=== PATIENT | male | born 1930 | race Caucasian/White ===

== ENCOUNTER 2016-11-30 10:28 | Emergency (ER) | payer OTHER ==
--- NOTE | 2016-11-30 10:52 | ER Document Report ---
ED Medical Screen (RME) - General Chief Complaint: General Weakness Stated Complaint: WEAKNESS,POSSIBLE DEHYDRATION Notes: 86 yo male c/o feeling weak, slightly confused. feels "sick". not drinking as much as usual. feels achey. no n/v/d or fever. pt has hx/o dementia, DM. Pt has chronic rash TRAVEL OUTSIDE OF THE [place] IN LAST 30 DAYS: No - Related Data Allergies/Adverse Reactions: No Known Allergies Allergy (Verified 11/30/16 10:36) Past Medical History - Social History Chew tobacco use (# tins/day): No Frequency of alcohol use: None Drug Abuse: None - Past Medical History Cardiac Medical History: Reports: Hx Hypertension - medicated Denies: Hx Heart Attack Pulmonary Medical History: Denies: Hx Asthma Neurological Medical History: Denies: Hx Cerebrovascular Accident, Hx Seizures GI Medical History: Denies: Hx Hepatitis, Hx Hiatal Hernia, Hx Ulcer Skin Medical History: Denies Hx Cellulitis Infectious Medical History: Denies: Hx Hepatitis Past Surgical History: Reports: Hx Carotid Endarterectomy. Denies: Hx Open Heart Surgery, Hx Pacemaker - Immunizations Hx Diphtheria, Pertussis, Tetanus Vaccination: Yes Physical Exam - Vital signs Vitals: Temp Pulse Resp BP Pulse Ox 98.1 F 105 H 18 110/45 L 90 L 11/30/16 10:42 11/30/16 10:42 11/30/16 10:42 11/30/16 10:42 11/30/16 10:42 Course - Vital Signs Vital signs: Temp Pulse Resp BP Pulse Ox 98.1 F 105 H 18 110/45 L 90 L 11/30/16 10:42 11/30/16 10:42 11/30/16 10:42 11/30/16 10:42 11/30/16 10:42
[2016-11-30] MEDS ORDERED: NORMAL SALINE 1000 ML 1,000 ML IV ONE ×2 (11:42→12:27)
[2016-11-30 12:01] LABS: ABSOLUTE BASOPHILS # (AUTO) 0.1 10^3/uL (0.0-0.2); ABSOLUTE EOSINOPHILS # (AUTO) 1.5 10^3/uL (0.0-0.6); ABSOLUTE LYMPHOCYTES (AUTO) 1.9 10^3/uL (0.5-4.7); ABSOLUTE NEUT (AUTO) 5.9 10^3/uL (1.7-8.2); BASOPHILS % (AUTO) 0.8 % (0-2); HEMATOCRIT 36.1 % (37.9-51.0); HEMOGLOBIN 11.8 g/dL (13.5-17.0); HGB HCT DIFFERENCE -0.7; LYMPHOCYTES % (AUTO) 17.9 % (13-45); MEAN CORPUSCULAR HEMOGLOBIN 27.6 pg (27.0-33.4); MEAN CORPUSCULAR HGB CONC 32.5 g/dL (32.0-36.0); MEAN CORPUSCULAR VOLUME 85 fl (80-97); RED BLOOD COUNT 4.26 10^6/uL (4.35-5.55); RED CELL DISTRIBUTION WIDTH 14.8 % (11.5-14.0); SEGMENTED NEUTROPHILS % (AUTO) 57.3 % (42-78); WHITE BLOOD COUNT 10.4 10^3/uL (4.0-10.5)
[2016-11-30 12:23] LABS: ALANINE AMINOTRANSFERASE 40 U/L (21-72); ALBUMIN 3.8 g/dL (3.5-5.0); ALKALINE PHOSPHATASE 89 U/L (38-126); ANION GAP 14 (5-19); ASPARTATE AMINO TRANSFERASE 25 U/L (17-59); BILIRUBIN,TOTAL 0.4 mg/dL (0.2-1.3); BLOOD UREA NITROGEN 33 mg/dL (7-20); CARBON DIOXIDE 34 mmol/L (22-30); CHLORIDE 96 mmol/L (98-107); CREATINE KINASE 68 U/L (55-170); GLUCOSE 70 mg/dL (75-110); POTASSIUM 4.3 mmol/L (3.6-5.0); SODIUM 144.2 mmol/L (137-145); TOTAL PROTEIN 7.5 g/dL (6.3-8.2)
[2016-11-30 12:32] LABS: CREATINE KINASE MB 0.54 ng/mL (<4.55); TROPONIN I 0.019 ng/mL
[2016-11-30 12:34] LABS: APPEARANCE,URINE CLEAR; BILIRUBIN,URINE NEGATIVE (NEGATIVE); GLUCOSE, URINE NEGATIVE (NEGATIVE); KETONES,URINE NEGATIVE (NEGATIVE); LEUKOCYTE ESTERASE,URINE NEGATIVE (NEGATIVE); NITRITE,URINE NEGATIVE (NEGATIVE); PROTEIN,URINE NEGATIVE (NEGATIVE); UROBILINOGEN,URINE NEGATIVE mg/dL (<2.0)
--- NOTE | 2016-11-30 13:14 | ER Document Report ---
ED General - General Chief Complaint: General Weakness Stated Complaint: WEAKNESS,POSSIBLE DEHYDRATION Mode of Arrival: Ambulatory Information source: Patient, Relative Notes: 86-year-old male presents from home with complaints of dehydration. Patient notes weakness but denies any specific complaints. Son who is a caregiver states that he was much worse 2 days ago gave him lots of Gatorade yesterday and he has perked up since he wanted him to be evaluated for dehydration. Patient denies any other concerns TRAVEL OUTSIDE OF THE [place] IN LAST 30 DAYS: No - HPI Onset: Other - 3 days Onset/Duration: Persistent, Better Quality of pain: No pain Severity: Mild Pain Level: Denies Associated symptoms: Weakness Exacerbated by: Denies Relieved by: Denies Similar symptoms previously: Yes Recently seen / treated by doctor: No - Related Data Allergies/Adverse Reactions: No Known Allergies Allergy (Verified 11/30/16 10:36) Past Medical History - Social History Smoking Status: Never Smoker Cigarette use (# per day): No Chew tobacco use (# tins/day): No Smoking Education Provided: No Frequency of alcohol use: None Drug Abuse: None Family History: Reviewed & Not Pertinent Patient has suicidal ideation: No Patient has homicidal ideation: No - Past Medical History Cardiac Medical History: Reports: Hx Hypertension - medicated Denies: Hx Heart Attack Pulmonary Medical History: Denies: Hx Asthma Neurological Medical History: Denies: Hx Cerebrovascular Accident, Hx Seizures GI Medical History: Denies: Hx Hepatitis, Hx Hiatal Hernia, Hx Ulcer Skin Medical History: Denies Hx Cellulitis Infectious Medical History: Denies: Hx Hepatitis Past Surgical History: Reports: Hx Carotid Endarterectomy. Denies: Hx Open Heart Surgery, Hx Pacemaker - Immunizations Hx Diphtheria, Pertussis, Tetanus Vaccination: Yes Review of Systems - Review of Systems Notes: REVIEW OF SYSTEMS: CONSTITUTIONAL : Denies fever, chills, or sweats. Denies recent illness. EENT: Denies eye, ear, throat, or mouth pain or symptoms. Denies nasal or sinus congestion or discharge. Denies throat, tongue, or mouth swelling or difficulty swallowing. CARDIOVASCULAR: Denies chest pain. Denies palpitations or racing or irregular heart beat. Denies ankle edema. RESPIRATORY: Denies cough, cold, or chest congestion. Denies shortness of breath, difficulty breathing, or wheezing. GASTROINTESTINAL: Denies abdominal pain or distention. Denies nausea, vomiting , or diarrhea. Denies blood in vomitus, stools, or per rectum. Denies black, tarry stools. Denies constipation. GENITOURINARY: Denies difficulty urinating, painful urination, burning, frequency, blood in urine, or discharge. MUSCULOSKELETAL: Denies back or neck pain or stiffness. Denies joint pain or swelling. SKIN: Denies rash, lesions or sores. HEMATOLOGIC : Denies easy bruising or bleeding. LYMPHATIC: Denies swollen, enlarged glands. NEUROLOGICAL: Admits weakness PSYCHIATRIC: Denies anxiety or stress. Denies depression, suicidal ideation, or homicidal ideation. ALL OTHER SYSTEMS REVIEWED AND NEGATIVE. Dictation was performed using [employer] voice recognition software PHYSICAL EXAMINATION: GENERAL: Well-appearing, well-nourished and in no acute distress. HEAD: Atraumatic, normocephalic. EYES: Pupils equal round and reactive to light, extraocular movements intact, sclera anicteric, left eye discharge chronic ENT: Nares patent, oropharynx clear without exudates. Moist mucous membranes. NECK: Normal range of motion, supple without lymphadenopathy LUNGS: Breath sounds clear to auscultation bilaterally and equal. No wheezes rales or rhonchi. HEART: Regular rate and rhythm without murmurs ABDOMEN: Soft, nontender, nondistended abdomen. No guarding, no rebound. No masses appreciated. Musculoskeletal: Normal range of motion, no pitting or edema. No cyanosis. NEUROLOGICAL: Cranial nerves grossly intact. Normal speech, normal gait. Normal sensory, motor exams PSYCH: Normal mood, normal affect. SKIN: Warm, Dry, normal turgor, no rashes or lesions noted. Physical Exam - Vital signs Vitals: Temp Pulse Resp BP Pulse Ox 98.1 F 105 H 18 110/45 L 90 L 11/30/16 10:42 11/30/16 10:42 11/30/16 10:42 11/30/16 10:42 11/30/16 10:42 Course - Re-evaluation Re-evalutation: 11/30/16 13:12 Patient's creatinine is noted to be 2.5 otherwise the patient looks extremely well, I will hydrate him, family wishes to go home as is the patient. I spent to them my specific concerns and they state the understand and will return immediately if there are any other concerns Patient given 2 L of fluid notes significant improvement After performing a Medical Screening Examination, I estimate there is LOW risk for ACUTE CORONARY SYNDROME, RESPIRATORY FAILURE, SEPSIS OR MENINGITIS, thus I consider the discharge disposition reasonable. The patient and I have discussed the diagnosis and risks, and we agree with discharging home with close follow- up. We also discussed returning to the Emergency Department immediately if new or worsening symptoms occur. We have discussed the symptoms which are most concerning (e.g., changing or worsening pain, trouble swallowing or breathing, neck stiffness, fever) that necessitate immediate return. 11/30/16 13:14 11/30/16 13:14 - Vital Signs Vital signs: Temp Pulse Resp BP Pulse Ox 98.1 F 105 H 18 110/45 L 90 L 11/30/16 10:42 11/30/16 10:42 11/30/16 10:42 11/30/16 10:42 11/30/16 10:42 - Laboratory Result Diagrams: 11/30/16 11:25 11/30/16 11:25 Laboratory results interpreted by me: 11/30/16 11/30/16 11:25 11:25 RBC 4.26 L Hgb 11.8 L Hct 36.1 L RDW 14.8 H Eosinophils % 14.0 H Absolute Eosinophils 1.5 H Chloride 96 L Carbon Dioxide 34 H BUN 33 H Creatinine 2.50 H Est GFR ( Amer) 30 L Est GFR (Non-Af Amer) 25 L Glucose 70 L - Diagnostic Test Radiology reviewed: Image reviewed, Reports reviewed Discharge - Discharge Clinical Impression: Dehydration, Renal insufficiency Condition: Stable Disposition: HOME, SELF-CARE Additional Instructions: Dehydration Dehydration can result from vomiting or diarrhea, fever, or decreased intake of fluids. If severe, hospitalization and intravenous fluids may be required. Most cases are treated at home with fluids by mouth. For the next 24 hours, drink lots of clear fluids. In mild cases, this can be soda pop or sports drinks. For more severe dehydration, the doctor may recommend special fluids such as Pedialyte or Lytren. Try to get three liters ( 3 quarts) of fluid per day. If vomiting occurs, continue to drink the fluids frequently (every 15 to 20 minutes), but in small amounts (one or two ounces). Depending on the type of dehydration, the doctor may prescribe antinausea medicine or potassium replacements. Call the doctor or return for re-examination if you become progressively weak, vomit repeatedly, or have other new symptoms. Follow up with your physician tomorrow for further care or return to the ED IMMEDIATELY if symptoms worsen or new concerns occur
[2016-11-30 13:54] VITALS: BP 119/99
--- NOTE | 2016-11-30 15:50 | EKG REPORT ---
SEVERITY:- NORMAL ECG - SINUS RHYTHM : Confirmed by: Arlyn Castillo 30-Nov-2016 15:50:14
== END 2016-11-30 16:45 | disposition home or self-care (01) ==
LOC: ER 10:28
DX: E86.0 Dehydration (principal); N28.9 Disorder of kidney and ureter, unspecified; R53.1 Weakness
CPT/HCPCS: 93005; 99285; 96360; 96361; 36415; 82553; 82550; 85025; 80053; 81001; 84484; 71020; 93010; J7030

== ENCOUNTER → 2017-03-28 | Outpatient (CLI) | payer OTHER | LOC: OD 15:02 | PROVIDERS: ATTEND Family Medicine Geriatric Medicine | DX: E11.9 Type 2 diabetes mellitus without complications (principal); I10 Essential (primary) hypertension; E78.5 Hyperlipidemia, unspecified; N18.3 Chronic kidney disease, stage 3 (moderate) ==

== ENCOUNTER → 2017-04-03 | Outpatient (CLI) | payer OTHER ==
[2017-04-03 09:18] LABS: ABSOLUTE BASOPHILS # (AUTO) 0.1 10^3/uL (0.0-0.2); ABSOLUTE EOSINOPHILS # (AUTO) 1.2 10^3/uL (0.0-0.6); ABSOLUTE LYMPHOCYTES (AUTO) 1.8 10^3/uL (0.5-4.7); ABSOLUTE NEUT (AUTO) 13.6 10^3/uL (1.7-8.2); BASOPHILS % (AUTO) 0.6 % (0-2); EOSINOPHILS % (AUTO) 6.6 % (0-6); HEMATOCRIT 39.5 % (37.9-51.0); HEMOGLOBIN 12.9 g/dL (13.5-17.0); HGB HCT DIFFERENCE -0.8; LYMPHOCYTES % (AUTO) 10.4 % (13-45); MEAN CORPUSCULAR HEMOGLOBIN 27.7 pg (27.0-33.4); MEAN CORPUSCULAR HGB CONC 32.8 g/dL (32.0-36.0); MEAN CORPUSCULAR VOLUME 85 fl (80-97); MONOCYTES % (AUTO) 5.6 % (3-13); RED BLOOD COUNT 4.67 10^6/uL (4.35-5.55); RED CELL DISTRIBUTION WIDTH 15.2 % (11.5-14.0); SEGMENTED NEUTROPHILS % (AUTO) 76.8 % (42-78); WHITE BLOOD COUNT 17.7 10^3/uL (4.0-10.5)
[2017-04-03 09:39] LABS: ALANINE AMINOTRANSFERASE 58 U/L (21-72); ALBUMIN 4.7 g/dL (3.5-5.0); ALKALINE PHOSPHATASE 127 U/L (38-126); ANION GAP 17 (5-19); ASPARTATE AMINO TRANSFERASE 76 U/L (17-59); BILIRUBIN,DIRECT 0.6 mg/dL (0.0-0.4); BILIRUBIN,TOTAL 0.8 mg/dL (0.2-1.3); BLOOD UREA NITROGEN 37 mg/dL (7-20); CALCIUM 9.7 mg/dL (8.4-10.2); CARBON DIOXIDE 29 mmol/L (22-30); CHLORIDE 95 mmol/L (98-107); CHOLESTEROL 193.61 mg/dL (0-200); CREATININE RESULT 2.02 mg/dL (0.52-1.25); Direct HDL 60 mg/dL (>40); GLUCOSE 337 mg/dL (75-110); POTASSIUM 4.7 mmol/L (3.6-5.0); SODIUM 140.8 mmol/L (137-145); TOTAL PROTEIN 9.3 g/dL (6.3-8.2); TRIGLYCERIDES 132 mg/dL (<150)
[2017-04-03 09:50] LABS: DIRECT LDL 97 mg/dL (<100)
[2017-04-04 11:39] LABS: CREATININE URINE 101.1 mg/dL (Not Estab.); MICROALBUMIN URINE 224.2 ug/mL (Not Estab.)
== END ==
LOC: OD 08:16
PROVIDERS: ATTEND Family Medicine Geriatric Medicine
DX: E11.9 Type 2 diabetes mellitus without complications (principal); I10 Essential (primary) hypertension; E78.5 Hyperlipidemia, unspecified; N18.3 Chronic kidney disease, stage 3 (moderate)
CPT/HCPCS: 36415; 80053; 80061; 82043; 82306; 82570; 83036; 84153; 84443; 85025

== ENCOUNTER 2017-04-07 17:44 | Emergency (ER) | payer MEDICARE, OTHER ==
--- NOTE | 2017-04-07 18:29 | ER Document Report ---
ED Medical Screen (RME) - General Chief Complaint: Cough Stated Complaint: COUGH/FEVER Time Seen by Provider: 04/07/17 18:22 Notes: The patient is an 86-year-old male, past medical history former smoker, presents with several days of increasing cough, fevers up to 100.7 and " rattling in the chest". He was surrounded by multiple family members this week after the of his . Patient denies any shortness of breath, chest pain , leg swelling, nausea, vomiting, rash, hemoptysis or back pain. PE: No respiratory distress, slight end-expiratory wheeze, tachycardia I have greeted and performed a rapid initial assessment of this patient. A comprehensive ED assessment and evaluation of the patient, analysis of test results and completion of the medical decision making process will be conducted by additional ED providers. TRAVEL OUTSIDE OF THE [place] IN LAST 30 DAYS: No - Related Data Allergies/Adverse Reactions: No Known Allergies Allergy (Verified 11/30/16 10:36) Past Medical History - Past Medical History Cardiac Medical History: Reports: Hx Hypertension - medicated Denies: Hx Heart Attack Pulmonary Medical History: Denies: Hx Asthma Neurological Medical History: Denies: Hx Cerebrovascular Accident, Hx Seizures Renal/ Medical History: Denies: Hx Peritoneal Dialysis GI Medical History: Denies: Hx Hepatitis, Hx Hiatal Hernia, Hx Ulcer Skin Medical History: Denies Hx Cellulitis Infectious Medical History: Denies: Hx Hepatitis Past Surgical History: Reports: Hx Carotid Endarterectomy. Denies: Hx Open Heart Surgery, Hx Pacemaker - Immunizations Hx Diphtheria, Pertussis, Tetanus Vaccination: Yes Physical Exam - Vital signs Vitals: Temp Pulse Ox 98.2 F 92 04/07/17 17:51 04/07/17 17:51 Course - Vital Signs Vital signs: Temp Pulse Resp BP Pulse Ox 98.2 F 105 H 20 129/49 H 92 04/07/17 17:51 04/07/17 17:55 04/07/17 17:55 04/07/17 17:55 04/07/17 17:55
[2017-04-07] MEDS ORDERED: NORMAL SALINE 1000 ML 1,000 ML IV ONE (19:45)
[2017-04-07] MEDS ORDERED: LEVOFLOXACIN 750 MG/D5W RTU 150 ML IV ONE (19:46)
[2017-04-07] MEDS ORDERED: CEFTRIAXONE 1 GM/D5W RTU 50 ML IV ONE (19:47)
--- NOTE | 2017-04-07 19:49 | ER Document Report ---
ED General - General Chief Complaint: Cough Stated Complaint: COUGH/FEVER Time Seen by Provider: 04/07/17 18:22 Notes: Patient is an 86-year-old male with a past history of hypertension, hyperlipidemia who presents with 3 days of progressively worsening weakness. He is also had a fever up to 100.7F. He has had a dry, nonproductive cough. States the symptoms have been worsening since onset. They are constant. Denies any associated shortness of breath, chest pain, headache, neck pain, dysuria or abdominal pain. No vomiting or diarrhea although he notes he has had anorexia. Nothing seems to improve or worsen his symptoms. His family notes that she's had similar symptoms in the past and these had a pneumonia. He was referred to the emergency department by his primary care doctor. TRAVEL OUTSIDE OF THE [place] IN LAST 30 DAYS: No - Related Data Allergies/Adverse Reactions: No Known Allergies Allergy (Verified 11/30/16 10:36) Past Medical History - General Information source: Patient - Social History Smoking Status: Never Smoker Frequency of alcohol use: None Drug Abuse: None Family History: Reviewed & Not Pertinent Patient has suicidal ideation: No Patient has homicidal ideation: No - Past Medical History Cardiac Medical History: Reports: Hx Hypertension - medicated Denies: Hx Heart Attack Pulmonary Medical History: Denies: Hx Asthma Neurological Medical History: Denies: Hx Cerebrovascular Accident, Hx Seizures Renal/ Medical History: Denies: Hx Peritoneal Dialysis GI Medical History: Denies: Hx Hepatitis, Hx Hiatal Hernia, Hx Ulcer Skin Medical History: Denies Hx Cellulitis Infectious Medical History: Denies: Hx Hepatitis Past Surgical History: Reports: Hx Carotid Endarterectomy. Denies: Hx Open Heart Surgery, Hx Pacemaker - Immunizations Hx Diphtheria, Pertussis, Tetanus Vaccination: Yes Review of Systems - Review of Systems Notes: Constitutional: Positive for fever. HENT: Negative for sore throat. Eyes: Negative for visual changes. Cardiovascular: Negative for chest pain. Respiratory: Positive for shortness of breath. Gastrointestinal: Negative for abdominal pain, vomiting or diarrhea. Genitourinary: Negative for dysuria. Musculoskeletal: Negative for back pain. Skin: Negative for rash. Neurological: Negative for headaches, weakness or numbness. 10 point ROS negative except as marked above and in HPI. Physical Exam - Vital signs Vitals: Temp Pulse Ox 98.2 F 92 04/07/17 17:51 04/07/17 17:51 Interpretation: Normal Notes: PHYSICAL EXAMINATION: GENERAL: Appears stated age, somewhat frail but in no acute distress HEAD: Atraumatic, normocephalic. EYES: Pupils equal round and reactive to light, extraocular movements intact, sclera anicteric, conjunctiva are normal. ENT: nares patent, oropharynx clear without exudates. Moderately dry mucous membranes. NECK: Normal range of motion, supple without lymphadenopathy LUNGS: Diminished breath sounds at the right base. No distress HEART: Regular rate and rhythm. No murmurs gallops or rubs. ABDOMEN: Soft, nontender, normoactive bowel sounds. No guarding, no rebound. No masses appreciated. EXTREMITIES: Normal range of motion, no pitting or edema. No cyanosis. NEUROLOGICAL: No focal neurological deficits. Moves all extremities spontaneously and on command. PSYCH: Normal mood, normal affect. SKIN: Warm, Dry, normal turgor, no rashes or lesions noted. Course - Re-evaluation Re-evalutation: 04/07/17 19:48 Presentation is clinically most consistent with a right lower lobe pneumonia. Patient does have cough, fever, mild hypoxemia with initial oxygen saturation at 92% but is otherwise nontoxic in appearance. Chest x-ray does demonstrate an infiltrate in the right lower lobe with loss of the appropriate demarcations of the diaphragm. Will obtain labs, begin ceftriaxone and levofloxacin and continue to monitor the patient. Both the patient and his family do prefer discharge and outpatient. CURB-65 score is 2 placing patient in a moderate risk group for outpatient therapy. I discussed with the patient and his son at the bedside extensively about the risks and benefits of inpatient versus outpatient treatment. Although my personal preference would be for the patient to be admitted to the hospital given his borderline oxygen saturation, age, and somewhat difficulty with mobility at baseline the patient is refusing stating that he would prefer to be managed as an outpatient. The family notes that they should be able to be with him almost 24 hours a day to ensure that he is taking his medications as directed and getting adequate nutrition.At this time per patient request, will discharge with return precautions and follow-up recommendations. Verbal discharge instructions given a the bedside and opportunity for questions given. Medication warnings reviewed. Patient is in agreement with this plan and has verbalized understanding of return precautions and the need for primary care follow-up in the next 24-72 hours. 05 Vital Signs Vital signs: Temp Pulse Resp BP Pulse Ox 98.2 F 89 24 H 143/52 H 91 L 04/07/17 17:51 04/07/17 23:10 04/07/17 23:10 04/07/17 23:10 04/07/17 23:10 - Laboratory Result Diagrams: 04/07/17 19:54 04/07/17 19:54 Laboratory results interpreted by me: 04/07/17 04/07/17 19:54 19:54 WBC 12.7 H Hgb 12.2 L Hct 37.1 L RDW 15.2 H Lymphocytes % 11.5 L Absolute Neutrophils 9.4 H Chloride 94 L BUN 44 H Creatinine 2.50 H Est GFR ( Amer) 30 L Est GFR (Non-Af Amer) 25 L Glucose 226 H - Diagnostic Test Radiology reviewed: Image reviewed, Reports reviewed Radiology results interpreted by me: 04/07/17 21:00 Chest x-ray: Right lower lobe pneumonia Discharge - Discharge Clinical Impression: Right lower lobe pneumonia Qualifiers: Pneumonia type: due to unspecified organism Qualified Code(s): J18.1 - Lobar pneumonia, unspecified organism Condition: Good Disposition: HOME, SELF-CARE Additional Instructions: You have been diagnosed with a pneumonia. It is very important that you take all of your antibiotics until they are gone even if you are feeling better. Please return to the emergency department immediately if you began having worsening shortness of breath, become confused, have worsening pain, pass out, have persistent vomiting that prevents you from being able to drink fluids for more than 12 hours, or have any other symptoms that are worrisome to you. Please follow-up with your primary care doctor in the next 1-2 days. Prescriptions: Levofloxacin 750 mg PO QHS #4 tablet
[2017-04-07 20:10] LABS: ABSOLUTE EOSINOPHILS # (AUTO) 0.6 10^3/uL (0.0-0.6); ABSOLUTE LYMPHOCYTES (AUTO) 1.5 10^3/uL (0.5-4.7); ABSOLUTE MONOCYTES (AUTO) 1.2 10^3/uL (0.1-1.4); ABSOLUTE NEUT (AUTO) 9.4 10^3/uL (1.7-8.2); BASOPHILS % (AUTO) 0.4 % (0-2); EOSINOPHILS % (AUTO) 4.6 % (0-6); HEMATOCRIT 37.1 % (37.9-51.0); HEMOGLOBIN 12.2 g/dL (13.5-17.0); HGB HCT DIFFERENCE -0.5; LYMPHOCYTES % (AUTO) 11.5 % (13-45); MEAN CORPUSCULAR VOLUME 85 fl (80-97); MONOCYTES % (AUTO) 9.6 % (3-13); RED BLOOD COUNT 4.37 10^6/uL (4.35-5.55); RED CELL DISTRIBUTION WIDTH 15.2 % (11.5-14.0); SEGMENTED NEUTROPHILS % (AUTO) 73.9 % (42-78); WHITE BLOOD COUNT 12.7 10^3/uL (4.0-10.5)
[2017-04-07 20:26] LABS: ANION GAP 18 (5-19); BLOOD UREA NITROGEN 44 mg/dL (7-20); CARBON DIOXIDE 26 mmol/L (22-30); CHLORIDE 94 mmol/L (98-107); GLUCOSE 226 mg/dL (75-110); POTASSIUM 3.9 mmol/L (3.6-5.0); SODIUM 137.6 mmol/L (137-145)
[2017-04-07 23:13] VITALS: BP 143/52
--- NOTE | 2017-04-09 11:38 | EKG REPORT ---
SEVERITY:- ABNORMAL ECG - SINUS TACHYCARDIA PROBABLE LEFT ATRIAL ABNORMALITY PROBABLE LEFT VENTRICULAR HYPERTROPHY PROBABLE INFERIOR INFARCT, OLD : Confirmed by: Arlyn Castillo 09-Apr-2017 11:37:09
== END 2017-04-07 22:24 | disposition home or self-care (01) ==
LOC: ER 17:44
DX: J18.1 Lobar pneumonia, unspecified organism (principal); R53.1 Weakness; R50.9 Fever, unspecified; R05 Cough; R63.0 Anorexia; R06.02 Shortness of breath; I10 Essential (primary) hypertension; R09.02 Hypoxemia
CPT/HCPCS: 93005; 36415; 87040; 85025; 87077; 80048; 83605; 71010; 93010; J7030; J0696; J1956; 87186; 96365; 96368; 99284

== ENCOUNTER → 2017-04-29 | Outpatient (CLI) | payer OTHER ==
[2017-04-29 10:04] LABS: ALANINE AMINOTRANSFERASE 24 U/L (21-72); ALBUMIN 4.3 g/dL (3.5-5.0); ALKALINE PHOSPHATASE 94 U/L (38-126); ASPARTATE AMINO TRANSFERASE 23 U/L (17-59); BILIRUBIN,DIRECT 0.4 mg/dL (0.0-0.4); BILIRUBIN,TOTAL 0.5 mg/dL (0.2-1.3); TOTAL PROTEIN 8.3 g/dL (6.3-8.2)
== END ==
LOC: OD 08:02
PROVIDERS: ATTEND Family Medicine Geriatric Medicine
DX: R79.89 Other specified abnormal findings of blood chemistry (principal); Z79.899 Other long term (current) drug therapy
CPT/HCPCS: 36415; 80076

== ENCOUNTER → 2017-05-01 | Outpatient (CLI) | payer MEDICARE, OTHER ==
--- NOTE | 2017-05-01 08:39 | RADIOLOGY REPORT (SQ) ---
EXAM DESCRIPTION: U/S ABDOMEN COMPLETE W/O DOP COMPLETED DATE/TIME: 05/01/2017 8:29 am REASON FOR STUDY: ABNORMAL LFTS (R79.89) R79.89 OTHER SPECIFIED ABNORMAL FINDINGS OF BLOOD CHEMISTR Y COMPARISON: None. TECHNIQUE: Dynamic and static grayscale images acquired of the abdomen and recorded on PACS. Additio nal selected color Doppler and spectral images recorded. LIMITATIONS: None. FINDINGS: PANCREAS: Not visualized. LIVER: No masses. Echotexture normal. LIVER VASCULATURE: Normal directional flow of the main portal vein and hepatic veins. GALLBLADDER: No stones. Normal wall thickness. No pericholecystic fluid. ULTRASOUND-DETECTED OLIVERA'S SIGN: Negative. INTRAHEPATIC DUCTS AND COMMON DUCT: CBD and intrahepatic ducts normal caliber. No filling defects. INFERIOR VENA CAVA: Not visualized. AORTA: No aneurysm. RIGHT KIDNEY: The right kidney measures 9.3 cm in length. Mild cortical thinning is noted. Normal echogenicity. No solid or suspicious masses. No hydronephrosis. No calcifications. LEFT KIDNEY: The left kidney measures 8.0 cm in length. There is thinning of the cortex. Normal e chogenicity. No solid or suspicious masses. No hydronephrosis. No calcifications. SPLEEN: Normal size. No solid masses. PERITONEAL AND PLEURAL SPACES: No ascites or effusions. OTHER: No other significant finding. IMPRESSION: 1. Nonvisualization of the pancreas. 2. Mild cortical thinning involving both kidneys. No other significant findings. TECHNICAL DOCUMENTATION: JOB ID: [id number] [employer]- All Rights Reserved
== END ==
LOC: RAD 07:30
PROVIDERS: ATTEND Family Medicine Geriatric Medicine
DX: R79.89 Other specified abnormal findings of blood chemistry (principal)
CPT/HCPCS: 76700

== ENCOUNTER 2017-05-27 15:21 | Inpatient (IN) | payer MEDICARE, OTHER ==
[2017-05-27] MEDS ORDERED: NORMAL SALINE 1000 ML 1,000 ML IV ONE ×2 (15:52→17:50)
--- NOTE | 2017-05-27 15:53 | ER Document Report ---
ED General - General Mode of Arrival: Wheelchair Information source: Patient, Parent - son TRAVEL OUTSIDE OF THE [place] IN LAST 30 DAYS: No - HPI Patient complains to provider of: Weakness and Bilateral upper and lower extremity shaking Onset: Other - see notes above Associated symptoms: Other - see notes above <MICHELLE MOURA - Last Filed: 05/27/17 16:13> <ROSEANN OSEI - Last Filed: 05/27/17 19:18> - General Chief Complaint: General Weakness Stated Complaint: SHAKING HANDS AND LEGS AND WEAKNESS Time Seen by Provider: 05/27/17 15:40 Notes: 86 year old male with history of diabetes, hypertension, and renal insufficiency presents to the ED accompanied by his son complaining of acute increase in weakness and tremors to the bilateral upper and lower extremities. The son reports that the patient has been weak for 2-3 years after recovering from a 'bad infection', but has always been able to get around on his own. Today , the patient is increasingly weak and is complaining of intermittent nausea, but denies headache, back pain, chest pain, vomiting, shortness of breath, numbness, tingling, or vision changes. Patient was seen in the ED on 04/07/2017 for similar complaints of increasing weakness and was diagnosed with pneumonia and discharged with Levofloxacin 750 mg PO QHS. Son states that the patient has finished his course and was improving until this current episode of weakness. Son states that the patient had a collapsed lung 2 weeks ago that did not require a chest tube. PCP: Dr. Garcia (MICHELLE MOURA) - Related Data Allergies/Adverse Reactions: No Known Allergies Allergy (Verified 05/27/17 15:29) Past Medical History - General Information source: Patient - Social History Smoking Status: Former Smoker Chew tobacco use (# tins/day): No Frequency of alcohol use: None Drug Abuse: None Family History: Reviewed & Not Pertinent Patient has suicidal ideation: No Patient has homicidal ideation: No - Past Medical History Cardiac Medical History: Reports: Hx Hypertension - medicated Neurological Medical History: Denies: Hx Cerebrovascular Accident, Hx Seizures Endocrine Medical History: Reports: Hx Diabetes Mellitus Type 2 Renal/ Medical History: Reports: Hx Renal Insufficiency - Not being dialyzed. Denies: Hx Hemodialysis, Hx Peritoneal Dialysis Skin Medical History: Denies Hx Cellulitis Infectious Medical History: Denies: Hx Hepatitis Past Surgical History: Reports: Hx Carotid Endarterectomy - Immunizations Hx Diphtheria, Pertussis, Tetanus Vaccination: Yes <MICHELLE MOURA - Last Filed: 05/27/17 16:13> Review of Systems - Review of Systems Constitutional: See HPI, Weakness, Recent illness - pneumonia on 04/07/2017 EENT: No symptoms reported. denies: Blurred vision, Double vision Cardiovascular: No symptoms reported. denies: Chest pain Respiratory: No symptoms reported. denies: Short of breath Gastrointestinal: See HPI, Nausea - intermittent. denies: Vomiting Genitourinary: No symptoms reported Male Genitourinary: No symptoms reported Musculoskeletal: No symptoms reported. denies: Back pain Skin: No symptoms reported Hematologic/Lymphatic: No symptoms reported Neurological/Psychological: See HPI, Weakness, Tremor - bilateral upper and lower extremities. denies: Headaches, Numbness, Tingling -: Yes All other systems reviewed and negative <MICHELLE MOURA - Last Filed: 05/27/17 16:13> Physical Exam <MICHELLE MOURA - Last Filed: 05/27/17 16:13> <ROSEANN OSEI - Last Filed: 05/27/17 19:18> - Vital signs Vitals: Temp Pulse Resp BP Pulse Ox 99.2 F 112 H 20 116/49 L 85 L 05/27/17 15:30 05/27/17 15:30 05/27/17 15:30 05/27/17 15:30 05/27/17 15:30 - Notes Notes: GENERAL: Alert, interacts well. No acute distress. HEAD: Normocephalic, atraumatic. EYES: Pupils equal, round, and reactive to light. Extraocular movements intact. Presence of green discharge from the left eye. Ectropion of the left eyelid with conjunctival injection. Bilateral eyelids do approximate. Left inferior orbital rim is sunken with the left eyelid sunken deeper in socket than normal. Patient relays his left orbit has been this way since 1950. ENT: Oral mucosa moist, tongue midline. NECK: Full range of motion. Supple. Trachea midline. LUNGS: No wheezes or rales. Expiratory rhonchi that is worse on the right upper lobe. Patient is short of breath with a wet cough. HEART: Regular rhythm, but tachycardic. No murmurs, gallops, or rubs. ABDOMEN: Soft, non-tender. Non-distended. Bowel sounds present in all 4 quadrants. EXTREMITIES: Moves all 4 extremities spontaneously. No edema, radial and dorsalis pedis pulses 2/4 bilaterally. No cyanosis. NEUROLOGICAL: Alert and oriented x3. Normal speech. Biceps and patellar DTRs 2+ bilaterally. PSYCH: Normal affect, normal mood. SKIN: Warm, dry, normal turgor. No rashes or lesions noted. (MICHELLE MOURA) Course <MICHELLE MOURA - Last Filed: 05/27/17 16:13> - Laboratory Result Diagrams: 05/27/17 15:45 05/27/17 15:45 <ROSEANN OSEI - Last Filed: 05/27/17 19:18> - Re-evaluation Re-evalutation: 05/27/17 18:00 Shows leukocytosis of 26.8 significantly increased from the last value, blood gas does not show any acidosis, chemistries show chronic kidney disease but elevated lactic acid of 2.4, x-ray shows recurrent versus persistent right lower lobe pneumonia. Patient is treated for sepsis with antibiotics in the form of Levaquin and cefepime, given 2 L fluid bolus, lactic acid will be repeated, tachycardia has resolved, not hypotensive, no evidence of septic shock. No evidence for need for pressors. Discussed patient with Dr. Hahn who accepts the patient to his service in the admission status. 05/27/17 19:18 Hypoxia was treated with 2 L of oxygen via nasal cannula (ROSEANN OSEI) - Vital Signs Vital signs: Temp Pulse Resp BP Pulse Ox 99.2 F 112 H 23 H 110/55 L 94 05/27/17 15:30 05/27/17 15:30 05/27/17 17:19 05/27/17 17:19 05/27/17 17:19 - Laboratory Laboratory results interpreted by me: 05/27/17 05/27/17 05/27/17 15:45 15:45 15:45 WBC 26.8 H Hgb 12.6 L MCHC 31.1 L RDW 14.3 H Seg Neuts % (Manual) 87 H Band Neutrophils % 2 L Lymphocytes % (Manual) 6 L Abs Neuts (Manual) 23.9 H Abs Basophils (Manual) 0.3 H Chloride 94 L BUN 33 H Creatinine 2.26 H Est GFR ( Amer) 33 L Est GFR (Non-Af Amer) 28 L Glucose 244 H Lactic Acid 2.4 H Creatine Kinase 43 L Total Protein 9.1 H - EKG Interpretation by Me Additional EKG results interpreted by me: 05/27/17 18:00 EKG shows sinus rhythm at a rate of 95, left axis deviation, LVH, no ST segment elevations or depressions, no T-wave inversions, suspect poor lead placement as V2 is upright and then V3 is downward and then before his isoelectric per my interpretation. (ROSEANN OSEI) Critical Care Note - Critical Care Note Total time excluding time spent on procedures (mins): 35 <ROSEANN OSEI - Last Filed: 05/27/17 19:18> Discharge <MICHELLE MOURA - Last Filed: 05/27/17 16:13> - Discharge Admitting Provider: Hospitalist - [facility] Unit Admitted: Telemetry <ROSEANN OSEI - Last Filed: 05/27/17 19:18> - Discharge Clinical Impression: Pneumonia Qualifiers: Pneumonia type: due to unspecified organism Laterality: right Lung location: lower lobe of lung Qualified Code(s): J18.1 - Lobar pneumonia, unspecified organism Sepsis Qualifiers: Sepsis type: sepsis due to unspecified organism Qualified Code(s): A41.9 - Sepsis, unspecified organism Condition: Serious Disposition: ADMITTED INPATIENT Scribe Attestation: 05/27/17 19:18 I personally performed the services described in the documentation, reviewed and edited the documentation which was dictated to the scribe in my presence, and it accurately records my words and actions. (ROSEANN OSEI) Scribe Documentation - Scribe Written by Scribe:: Kayode Sands, 05/27/2017 1620 acting as scribe for :: Nirali <MICHELLE MOURA - Last Filed: 05/27/17 16:13>
[2017-05-27 16:21] LABS: HEMATOCRIT 40.4 % (37.9-51.0); HEMOGLOBIN 12.6 g/dL (13.5-17.0); HGB HCT DIFFERENCE -2.6; MEAN CORPUSCULAR HGB CONC 31.1 g/dL (32.0-36.0); MEAN CORPUSCULAR VOLUME 87 fl (80-97); RED BLOOD COUNT 4.66 10^6/uL (4.35-5.55); RED CELL DISTRIBUTION WIDTH 14.3 % (11.5-14.0); WHITE BLOOD COUNT 26.8 10^3/uL (4.0-10.5)
--- NOTE | 2017-05-27 16:24 | RADIOLOGY REPORT (SQ) ---
EXAM DESCRIPTION: CHEST SINGLE VIEW COMPLETED DATE/TIME: 05/27/2017 4:00 pm REASON FOR STUDY: cough, weakness, recent PNA COMPARISON: 04/07/2017 EXAM PARAMETERS: NUMBER OF VIEWS: One view. TECHNIQUE: Single frontal radiographic view of the chest acquired. RADIATION DOSE: NA LIMITATIONS: None. FINDINGS: LUNGS AND PLEURA: Slightly increased conspicuity of right infrahilar increased airspace ma rkings. No pneumothorax. No pleural effusion evident. MEDIASTINUM AND HILAR STRUCTURES: No masses. Contour normal. HEART AND VASCULAR STRUCTURES: Heart normal in size. Normal vasculature. BONES: No acute findings. HARDWARE: None in the chest. OTHER: No other significant finding. IMPRESSION: Persistent versus recurrent right lower lobe pulmonary opacification, consistent with pn eumonia. TECHNICAL DOCUMENTATION: JOB ID: [id number]
[2017-05-27 16:28] LABS: VENOUS BLOOD BASE EXCESS 2.5 mmol/L; VENOUS BLOOD HCO3 28.3 mmol/L (20-32); VENOUS BLOOD PCO2 48.4 mmHg (35-63); VENOUS BLOOD PH 7.39 (7.30-7.42)
[2017-05-27 16:29] LABS: PROTHROMBIN TIME 14.1 SEC (11.4-15.4)
[2017-05-27 16:38] LABS: BAND NEUTROPHILS % (MANUAL) 2 % (3-5); BASOPHILS % (MANUAL) 1 % (0-2); EOSINOPHILS % (MANUAL) 1 % (0-6); LYMPHOCYTES % (MANUAL) 6 % (13-45); TOTAL CELLS COUNTED 100
[2017-05-27 16:39] LABS: ALANINE AMINOTRANSFERASE 30 U/L (21-72); ALBUMIN 4.6 g/dL (3.5-5.0); ALKALINE PHOSPHATASE 112 U/L (38-126); ANION GAP 16 (5-19); ASPARTATE AMINO TRANSFERASE 31 U/L (17-59); BILIRUBIN,DIRECT 0.4 mg/dL (0.0-0.4); BILIRUBIN,TOTAL 0.7 mg/dL (0.2-1.3); BLOOD UREA NITROGEN 33 mg/dL (7-20); CALCIUM 9.7 mg/dL (8.4-10.2); CARBON DIOXIDE 29 mmol/L (22-30); CHLORIDE 94 mmol/L (98-107); CREATINE KINASE 43 U/L (55-170); CREATININE RESULT 2.26 mg/dL (0.52-1.25); GLUCOSE 244 mg/dL (75-110); POTASSIUM 4.5 mmol/L (3.6-5.0); SODIUM 139.3 mmol/L (137-145); TOTAL PROTEIN 9.1 g/dL (6.3-8.2)
[2017-05-27 16:40] LABS: HYPOCHROMASIA SLIGHT
[2017-05-27 16:50] LABS: CREATINE KINASE MB 0.25 ng/mL (<4.55); TROPONIN I 0.017 ng/mL
[2017-05-27] MEDS ORDERED: CEFEPIME 1 GM/D5W RTU 50 ML IV ONE (17:50)
[2017-05-27] MEDS ORDERED: LEVOFLOXACIN 750 MG/D5W RTU 150 ML IV ONE (17:50)
[2017-05-27] MEDS ORDERED: NORMAL SALINE 1000 ML 1,000 ML IV PRN (18:32)
[2017-05-27] MEDS ORDERED: ACETAMINOPHEN 325 MG TABLET PO PRN (18:32)
[2017-05-27] MEDS ORDERED: DEXTROSE 40% GEL 15 GM TUBE PO PRN ×2 (18:38)
[2017-05-27] MEDS ORDERED: GLUCAGON,HUMAN RECOMB 1 MG INJ IM PRN (18:38)
[2017-05-27] MEDS ORDERED: DEXTROSE 50%-WATER 25 GM/50 ML DISP.SYRIN IV PRN ×2 (18:38)
[2017-05-27 18:43] LABS: APPEARANCE,URINE CLEAR; BILIRUBIN,URINE NEGATIVE (NEGATIVE); GLUCOSE, URINE NEGATIVE (NEGATIVE); KETONES,URINE NEGATIVE (NEGATIVE); LEUKOCYTE ESTERASE,URINE NEGATIVE (NEGATIVE); NITRITE,URINE NEGATIVE (NEGATIVE); PROTEIN,URINE NEGATIVE (NEGATIVE); URINE SPECIFIC GRAVITY 1.008; UROBILINOGEN,URINE NEGATIVE mg/dL (<2.0)
--- NOTE | 2017-05-27 18:43 | PDOC H&P ---
History of Present Illness Admission Date/PCP: 05/27/17 18:10 JAMEL BROWN MD Patient complains of: Chills and confusion History of Present Illness: CANDELARIA LOVING is a 86 year old male, With history of dementia, as well as diabetes hypertension chronic kidney disease stage III BPH brought to the emergency room because of noted chills with associated fever and sweating. Patient apparently does not complain due to underlying dementia. Symptoms were noted by the family. The patient was seen in the emergency room last month and treated for right lower lobe pneumonia with antibiotics. The patient improved according to the family. Patient will have on and off bouts of being quiet and very active and talkative. Patient was brought to her rag boiler a few days ago and noted decreased breath sounds on the lower lung field more on the left. That was on routine visit. The day before admission the patient noted to be less responsive than usual. No reported respiratory distress or diarrhea. There is no reported nausea or vomiting as well. Patient was recently started on prostate medication by her by his primary care physician. On the day of admission he was brought to the emergency room because of the noted above symptoms. In the emergency room, chest x-ray revealed recurrent right lower lobe infiltrate with WBC of 26.8 and mildly elevated lactic acid. The patient was then referred for admission. Patient is unreliable and confused. Information unobtainable from the patient at this time. Information provided by the family. Past Medical History Past Medical History: Medication reconciliation pending verification from the patient's pharmacist. Cardiac Medical History: Reports: Hyperlipidema, Hypertension - medicated, Other - Carotid stenosis Denies: Myocardial Infarction Pulmonary Medical History: Denies: Asthma Neurological Medical History: Reports: Other - Dementia Denies: Seizures Endocrine Medical History: Reports: Diabetes Mellitus Type 2 Renal/ Medical History: Reports: Chronic Kidney Disease - Stage III, Other - BPH GI Medical History: Denies: Hepatitis, Hiatal Hernia Psychiatric Medical History: Reports: Dementia Hematology: Denies: Anemia, Sickle Cell Disease Past Surgical History Past Surgical History: Reports: Carotid Endarterectomy, Other - Cataract surgery Denies: Pacemaker Social History Information Source: Relative Smoking Status: Former Smoker Frequency of Alcohol Use: None Hx Recreational Drug Use: No Drugs: None Family History Family History: None Family History: Provided by the family Parental Family History Reviewed: Yes Children Family History Reviewed: Yes Sibling(s) Family History Reviewed.: Yes Medication/Allergy Home Medications: Lisinopril [Prinivil 10 mg Tablet] 10 mg PO DAILY 09/16/13 Atorvastatin Calcium [Lipitor 10 mg Tablet] 10 mg PO QHS 04/03/14 Donepezil HCl [Aricept] 10 mg PO DAILY 04/03/14 Folic Acid 1 mg PO DAILY 04/03/14 Meloxicam [Mobic] 7.5 mg PO DAILY 04/03/14 Tamsulosin HCl [Flomax] 0.4 mg PO DAILY 04/03/14 Levofloxacin 750 mg PO QHS #4 tablet 04/07/17 Allergies/Adverse Reactions: No Known Allergies Allergy (Verified 05/27/17 15:29) Review of Systems ROS unobtainable: Due to mental status - Other than stated above no other symptoms provided by the family. Physical Exam Vital Signs: Temp Pulse Resp BP Pulse Ox 99.2 F 112 H 23 H 110/55 L 94 05/27/17 15:30 05/27/17 15:30 05/27/17 17:19 05/27/17 17:19 05/27/17 17:19 General appearance: PRESENT: no acute distress, cooperative, obese Head exam: PRESENT: atraumatic, normocephalic Eye exam: PRESENT: conjunctival injection - Left, conjunctiva pink - right, EOMI, PERRLA - Sluggish no. ABSENT: scleral icterus Ear exam: PRESENT: normal external ear exam. ABSENT: drainage Mouth exam: PRESENT: dry mucosa, neck supple, tongue midline Throat exam: ABSENT: post pharyngeal erythema, tonsillar erythema Neck exam: ABSENT: carotid bruit, JVD, lymphadenopathy, thyromegaly Respiratory exam: PRESENT: clear to auscultation ronni, decreased breath sounds - Lower lung teague, rhonchi - Few bilateral. ABSENT: rales, wheezes Cardiovascular exam: PRESENT: RRR, +S1, +S2. ABSENT: diastolic murmur, gallop, rubs, systolic murmur Pulses: PRESENT: normal dorsalis pedis pul Vascular exam: PRESENT: normal capillary refill GI/Abdominal exam: PRESENT: normal bowel sounds, soft. ABSENT: distended, guarding, mass, organolmegaly, rebound, tenderness Rectal exam: PRESENT: deferred Extremities exam: PRESENT: full ROM, pedal edema - Trace. ABSENT: calf tenderness, clubbing Neurological exam: PRESENT: alert, altered - Confused, awake Psychiatric exam: PRESENT: appropriate affect, normal mood, other - Positive dementia Skin exam: PRESENT: dry, intact, warm. ABSENT: cyanosis, rash Results Impressions: Chest X-Ray 05/27/17 15:52 IMPRESSION: Persistent versus recurrent right lower lobe pulmonary opacification, consistent with pneumonia. Assessment & Plan - Diagnosis (1) Sepsis Qualifiers: Sepsis type: sepsis due to unspecified organism Qualified Code(s): A41.9 - Sepsis, unspecified organism Is this a current diagnosis for this admission?: Yes (2) Pneumonia Qualifiers: Pneumonia type: due to unspecified organism Laterality: right Lung location: lower lobe of lung Qualified Code(s): J18.1 - Lobar pneumonia, unspecified organism Is this a current diagnosis for this admission?: Yes (3) Chronic kidney disease, stage 3 (moderate) Is this a current diagnosis for this admission?: Yes (4) Essential hypertension Is this a current diagnosis for this admission?: Yes (5) Hyperlipidemia Qualifiers: Hyperlipidemia type: unspecified Qualified Code(s): E78.5 - Hyperlipidemia, unspecified Is this a current diagnosis for this admission?: Yes (6) Diabetes mellitus type 2 in obese Is this a current diagnosis for this admission?: Yes (7) Alzheimer's dementia Qualifiers: Alzheimer's disease onset: unspecified onset Dementia behavioral disturbance: without behavioral disturbance Qualified Code(s): G30.9 - Alzheimer's disease, unspecified; F02.80 - Dementia in other diseases classified elsewhere without behavioral disturbance Is this a current diagnosis for this admission?: Yes (8) BPH (benign prostatic hyperplasia) Qualifiers: Lower urinary tract symptom presence: presence of symptoms unspecified Qualified Code(s): N40.0 - Benign prostatic hyperplasia without lower urinary tract symptoms Is this a current diagnosis for this admission?: Yes (9) Carotid atherosclerosis Qualifiers: Laterality: unspecified laterality Qualified Code(s): I65.29 - Occlusion and stenosis of unspecified carotid artery Is this a current diagnosis for this admission?: Yes - Time Time Spent: 50 to 70 Minutes - Inpatient Certification Based on my medical assessment, after consideration of the patient's comorbidities, presenting symptoms, or acuity I expect that the services needed warrant INPATIENT care.: Yes I certify that my determination is in accordance with my understanding of Medicare's requirements for reasonable and necessary INPATIENT services [42 CFR 412.3e].: Yes Medical Necessity: Significant Comorbidiites Make Outpatient Treatment Too Risky , Need Close Monitoring Due to Risk of Patient Decompensation, Need For IV Fluids, Need for IV Antibiotics, Risk of Diagnosis Which Will Require Inpatient Eval/Care/Monitoring Post Hospital Care: D/C Produce Weigher Documentation - Plan Summary Plan Summary: The patient will be admitted to [facility]. We are going to culture the blood as well as the urine and sputum. I will begin the patient on intravenous cefepime and Levaquin. Supplemental oxygen will be given. DVT prophylaxis with heparin will be placed. Analgesics , mucolytic and antipyretics will be given as needed. We will check a swallowing evaluation. Obtain HgbA1C. Monitor creatinine. Further testing depends on the initial evaluations outlined above.
[2017-05-27] MEDS ORDERED: CEFEPIME 1 GM/D5W RTU 1 GM/50 ML RTUPB IV ONE (20:51)
--- NOTE | 2017-05-27 22:22 | EKG REPORT ---
SEVERITY:- ABNORMAL ECG - SINUS RHYTHM LVH WITH SECONDARY REPOLARIZATION ABNORMALITY PROBABLE INFERIOR INFARCT, OLD : Confirmed by: Arlyn Castillo 27-May-2017 22:21:36
[2017-05-27] MEDS: GUAIFENESIN 600 MG TABLET.SA PO SCH (22:23)
[2017-05-27] MEDS: HEPARIN SOD (PORCINE) 5,000 UNIT/ML 1 ML SYRINGE SUBCUT SCH (22:23)
[2017-05-27] MEDS: INSULIN REG, HUMAN 100 UNIT/ML 3 ML VIAL (PYX) SUBCUT PRN (22:37)
[2017-05-28] MEDS ORDERED: CEFEPIME 2 GM/D5W RTU 2 GM/50 ML RTUPB IV ONE (05:43)
[2017-05-28] MEDS: HEPARIN SOD (PORCINE) 5,000 UNIT/ML 1 ML SYRINGE SUBCUT SCH ×3 (05:46→21:13)
[2017-05-28] MEDS: CEFEPIME 2 GM/D5W RTU 50 ML IV SCH ×2 (05:46→17:39)
[2017-05-28] MEDS: LANSOPRAZOLE 30 MG TAB.RAP.DR PO SCH (05:47)
[2017-05-28 06:38] LABS: HEMATOCRIT 34.8 % (37.9-51.0); HGB HCT DIFFERENCE -1.8; MEAN CORPUSCULAR HEMOGLOBIN 27.5 pg (27.0-33.4); MEAN CORPUSCULAR HGB CONC 31.6 g/dL (32.0-36.0); MEAN CORPUSCULAR VOLUME 87 fl (80-97); RED CELL DISTRIBUTION WIDTH 14.2 % (11.5-14.0); WHITE BLOOD COUNT 19.1 10^3/uL (4.0-10.5)
[2017-05-28 06:56] LABS: ANION GAP 11 (5-19); BLOOD UREA NITROGEN 31 mg/dL (7-20); CALCIUM 8.3 mg/dL (8.4-10.2); CARBON DIOXIDE 28 mmol/L (22-30); CHLORIDE 101 mmol/L (98-107); CREATININE RESULT 1.87 mg/dL (0.52-1.25); GLUCOSE 167 mg/dL (75-110); POTASSIUM 4.2 mmol/L (3.6-5.0); SODIUM 139.9 mmol/L (137-145)
[2017-05-28] MEDS: GUAIFENESIN 600 MG TABLET.SA PO SCH ×2 (10:00→21:08)
[2017-05-28] MEDS: TAMSULOSIN HCL 0.4 MG CAP.SR.24H PO SCH (10:00)
[2017-05-28] MEDS: DONEPEZIL HCL 5 MG TABLET PO SCH (10:01)
--- NOTE | 2017-05-28 11:12 | PDOC PROGRESS REPORT ---
Subjective Progress Note for:: 05/28/17 Subjective:: No reported temperature spikes, respiratory distress, nausea or vomiting, nor diarrhea. Patient denies any pain or discomfort at this time. Patient however has underlying dementia. Patient reports he wanted to go home. Family at bedside, no symptoms reported of any discomfort at this time. Physical Exam Vital Signs: Temp Pulse Resp BP Pulse Ox 99.0 F 62 20 153/53 H 100 05/28/17 08:44 05/28/17 08:44 05/28/17 08:44 05/28/17 08:44 05/28/17 08:44 Intake & Output 05/27/17 05/28/17 05/29/17 06:59 06:59 06:59 Intake Total 850 Output Total 0 Balance 850 Weight 71.5 kg General appearance: PRESENT: no acute distress, cooperative Head exam: PRESENT: normocephalic Mouth exam: PRESENT: moist, neck supple Neck exam: ABSENT: JVD Respiratory exam: PRESENT: rhonchi - Right lower lung field. ABSENT: wheezes Cardiovascular exam: PRESENT: RRR. ABSENT: gallop GI/Abdominal exam: PRESENT: soft. ABSENT: distended, tenderness Extremities exam: PRESENT: other - Trace pretibial edema Neurological exam: PRESENT: alert, awake Skin exam: PRESENT: dry, warm. ABSENT: cyanosis Results Laboratory Results: 05/28/17 05:20 05/28/17 05:20 05/27/17 05/28/17 05/28/17 21:17 05:20 05:20 WBC 19.1 H RBC 4.00 L Hgb 11.0 L Hct 34.8 L MCV 87 MCH 27.5 MCHC 31.6 L RDW 14.2 H Plt Count 167 Sodium 139.9 Potassium 4.2 Chloride 101 Carbon Dioxide 28 Anion Gap 11 BUN 31 H Creatinine 1.87 H Est GFR ( Amer) 42 L Est GFR (Non-Af Amer) 34 L Glucose 167 H Lactic Acid 1.5 Calcium 8.3 L Impressions: Chest X-Ray 05/27/17 15:52 IMPRESSION: Persistent versus recurrent right lower lobe pulmonary opacification, consistent with pneumonia. Assessment & Plan - Diagnosis (1) Sepsis Qualifiers: Sepsis type: sepsis due to unspecified organism Qualified Code(s): A41.9 - Sepsis, unspecified organism Is this a current diagnosis for this admission?: Yes (2) Pneumonia Qualifiers: Pneumonia type: due to unspecified organism Laterality: right Lung location: lower lobe of lung Qualified Code(s): J18.1 - Lobar pneumonia, unspecified organism Is this a current diagnosis for this admission?: Yes (3) Chronic kidney disease, stage 3 (moderate) Is this a current diagnosis for this admission?: Yes (4) Essential hypertension Is this a current diagnosis for this admission?: Yes (5) Hyperlipidemia Qualifiers: Hyperlipidemia type: unspecified Qualified Code(s): E78.5 - Hyperlipidemia, unspecified Is this a current diagnosis for this admission?: Yes (6) Diabetes mellitus type 2 in obese Is this a current diagnosis for this admission?: Yes (7) Alzheimer's dementia Qualifiers: Alzheimer's disease onset: unspecified onset Dementia behavioral disturbance: without behavioral disturbance Qualified Code(s): G30.9 - Alzheimer's disease, unspecified; F02.80 - Dementia in other diseases classified elsewhere without behavioral disturbance Is this a current diagnosis for this admission?: Yes (8) BPH (benign prostatic hyperplasia) Qualifiers: Lower urinary tract symptom presence: presence of symptoms unspecified Qualified Code(s): N40.0 - Benign prostatic hyperplasia without lower urinary tract symptoms Is this a current diagnosis for this admission?: Yes (9) Carotid atherosclerosis Qualifiers: Laterality: unspecified laterality Qualified Code(s): I65.29 - Occlusion and stenosis of unspecified carotid artery Is this a current diagnosis for this admission?: Yes - Time Time Spent with patient: 25-34 minutes - Plan Summary Plan Summary: Continue current antibiotics. Follow cultures. Decrease intravenous fluids. Begin physical therapy. Try to wean oxygen. Continue supportive care.
[2017-05-28] MEDS: NORMAL SALINE 1000 ML 1,000 ML IV PRN (12:50)
--- NOTE | 2017-05-28 13:56 | RADIOLOGY REPORT (SQ) ---
EXAM DESCRIPTION: KUB/ABDOMEN (SINGLE VIEW) COMPLETED DATE/TIME: 05/28/2017 12:58 pm REASON FOR STUDY: fecal impaction COMPARISON: None. NUMBER OF VIEWS: One view. TECHNIQUE: Supine radiographic image of the abdomen acquired. LIMITATIONS: None. FINDINGS: BOWEL GAS PATTERN: Normal bowel gas pattern. No dilated loops. CONSTIPATION: moderate CALCIFICATIONS: No suspicious calcifications. SOFT TISSUES: No gross mass or suggestion of organomegaly. HARDWARE: None in the abdomen. BONES: No acute fracture. No worrisome bone lesions. OTHER: No other significant finding. IMPRESSION: NO RADIOGRAPHIC EVIDENCE FOR ACUTE ABDOMINAL DISEASE. Moderate constipation. TECHNICAL DOCUMENTATION: JOB ID: [id number] [employer]- All Rights Reserved
[2017-05-28] MEDS ORDERED: LEVOFLOXACIN 750 MG/D5W RTU 150 ML IV SCH (18:00)
[2017-05-28] MEDS: INSULIN REG, HUMAN 100 UNIT/ML 3 ML VIAL (PYX) SUBCUT PRN (21:36)
[2017-05-29 06:00] LABS: HEMATOCRIT 32.7 % (37.9-51.0); HEMOGLOBIN 10.7 g/dL (13.5-17.0); HGB HCT DIFFERENCE -0.6; MEAN CORPUSCULAR HEMOGLOBIN 27.8 pg (27.0-33.4); MEAN CORPUSCULAR HGB CONC 32.8 g/dL (32.0-36.0); MEAN CORPUSCULAR VOLUME 85 fl (80-97); RED BLOOD COUNT 3.86 10^6/uL (4.35-5.55); RED CELL DISTRIBUTION WIDTH 14.3 % (11.5-14.0); WHITE BLOOD COUNT 12.6 10^3/uL (4.0-10.5)
[2017-05-29 06:15] LABS: ANION GAP 10 (5-19); BLOOD UREA NITROGEN 27 mg/dL (7-20); CALCIUM 8.3 mg/dL (8.4-10.2); CARBON DIOXIDE 25 mmol/L (22-30); CHLORIDE 106 mmol/L (98-107); CREATININE RESULT 1.61 mg/dL (0.52-1.25); GLUCOSE 157 mg/dL (75-110); POTASSIUM 4.5 mmol/L (3.6-5.0)
[2017-05-29] MEDS: CEFEPIME 2 GM/D5W RTU 50 ML IV SCH (06:46)
[2017-05-29] MEDS: LANSOPRAZOLE 30 MG TAB.RAP.DR PO SCH (06:46)
[2017-05-29] MEDS: HEPARIN SOD (PORCINE) 5,000 UNIT/ML 1 ML SYRINGE SUBCUT SCH ×3 (06:46→21:23)
[2017-05-29] MEDS: DONEPEZIL HCL 5 MG TABLET PO SCH (09:27)
[2017-05-29] MEDS: GUAIFENESIN 600 MG TABLET.SA PO SCH ×2 (09:27→21:25)
[2017-05-29] MEDS: TAMSULOSIN HCL 0.4 MG CAP.SR.24H PO SCH (09:27)
[2017-05-29] MEDS: NORMAL SALINE 1000 ML 1,000 ML IV PRN (14:55)
[2017-05-29] MEDS ORDERED: NORMAL SALINE 1000 ML 1,000 ML IV PRN (15:17)
--- NOTE | 2017-05-29 15:23 | PDOC PROGRESS REPORT ---
Subjective Progress Note for:: 05/29/17 Subjective:: Patient continues to improve. Tolerating off the oxygen. Feels weak overall. There is no nausea vomiting or diarrhea. Denies chills or fever. No reported respiratory distress or temperature spikes. Physical Exam Vital Signs: Temp Pulse Resp BP Pulse Ox 98.0 F 78 18 125/40 L 92 05/29/17 08:20 05/29/17 13:47 05/29/17 08:20 05/29/17 08:20 05/29/17 08:20 Intake & Output 05/28/17 05/29/17 05/30/17 06:59 06:59 06:59 Intake Total 850 2869 Output Total 0 1450 Balance 850 1419 Weight 71.5 kg 73.4 kg General appearance: PRESENT: no acute distress, cooperative, obese Head exam: PRESENT: normocephalic Eye exam: PRESENT: EOMI Mouth exam: PRESENT: moist, neck supple Neck exam: ABSENT: JVD Respiratory exam: PRESENT: rhonchi - Occasional on the right. ABSENT: wheezes Cardiovascular exam: PRESENT: RRR. ABSENT: gallop GI/Abdominal exam: PRESENT: hypoactive bowel sounds, soft. ABSENT: distended, tenderness Extremities exam: ABSENT: pedal edema Neurological exam: PRESENT: alert, awake Skin exam: PRESENT: dry, warm. ABSENT: cyanosis Results Laboratory Results: 05/29/17 05:08 05/29/17 05:08 05/29/17 05/29/17 05:08 05:08 WBC 12.6 H RBC 3.86 L Hgb 10.7 L Hct 32.7 L MCV 85 MCH 27.8 MCHC 32.8 RDW 14.3 H Plt Count 165 Sodium 141.0 Potassium 4.5 Chloride 106 Carbon Dioxide 25 Anion Gap 10 BUN 27 H Creatinine 1.61 H Est GFR ( Amer) 49 L Est GFR (Non-Af Amer) 41 L Glucose 157 H Calcium 8.3 L Impressions: Chest X-Ray 05/27/17 15:52 IMPRESSION: Persistent versus recurrent right lower lobe pulmonary opacification, consistent with pneumonia. KUB X-Ray 05/28/17 00:00 IMPRESSION: NO RADIOGRAPHIC EVIDENCE FOR ACUTE ABDOMINAL DISEASE. Moderate constipation. Assessment & Plan - Diagnosis (1) Sepsis Qualifiers: Sepsis type: sepsis due to unspecified organism Qualified Code(s): A41.9 - Sepsis, unspecified organism Is this a current diagnosis for this admission?: Yes (2) Pneumonia Qualifiers: Pneumonia type: due to unspecified organism Laterality: right Lung location: lower lobe of lung Qualified Code(s): J18.1 - Lobar pneumonia, unspecified organism Is this a current diagnosis for this admission?: Yes (3) Chronic kidney disease, stage 3 (moderate) Is this a current diagnosis for this admission?: Yes (4) Essential hypertension Is this a current diagnosis for this admission?: Yes (5) Hyperlipidemia Qualifiers: Hyperlipidemia type: unspecified Qualified Code(s): E78.5 - Hyperlipidemia, unspecified Is this a current diagnosis for this admission?: Yes (6) Diabetes mellitus type 2 in obese Is this a current diagnosis for this admission?: Yes (7) Alzheimer's dementia Qualifiers: Alzheimer's disease onset: unspecified onset Dementia behavioral disturbance: without behavioral disturbance Qualified Code(s): G30.9 - Alzheimer's disease, unspecified; F02.80 - Dementia in other diseases classified elsewhere without behavioral disturbance Is this a current diagnosis for this admission?: Yes (8) BPH (benign prostatic hyperplasia) Qualifiers: Lower urinary tract symptom presence: presence of symptoms unspecified Qualified Code(s): N40.0 - Benign prostatic hyperplasia without lower urinary tract symptoms Is this a current diagnosis for this admission?: Yes (9) Carotid atherosclerosis Qualifiers: Laterality: unspecified laterality Qualified Code(s): I65.29 - Occlusion and stenosis of unspecified carotid artery Is this a current diagnosis for this admission?: Yes - Time Time Spent with patient: 25-34 minutes - Plan Summary Plan Summary: Begin physical therapy. Out of bed. Discontinue oxygen. Monitor O2 sat. Per speech therapy, no evidence of aspiration. We will switch to oral antibiotic with Levaquin. Discontinue intravenous fluids. If patient is stable in the morning can be discharged home with home health.
[2017-05-29] MEDS ORDERED: METRONIDAZOLE 500 MG TABLET PO SCH (15:30)
--- NOTE | 2017-05-29 16:12 | PDOC DISCHARGE SUMMARY ---
General - Admit/Disc Date/PCP Admission Date/Primary Care Provider: 05/27/17 18:32 JAMEL BROWN MD Discharge Date: 05/30/17 - Discharge Diagnosis (1) Sepsis Is this a current diagnosis for this admission?: Yes (2) Pneumonia Is this a current diagnosis for this admission?: Yes (3) Chronic kidney disease, stage 3 (moderate) Is this a current diagnosis for this admission?: Yes (4) Essential hypertension Is this a current diagnosis for this admission?: Yes (5) Hyperlipidemia Is this a current diagnosis for this admission?: Yes (6) Diabetes mellitus type 2 in obese Is this a current diagnosis for this admission?: Yes (7) Alzheimer's dementia Is this a current diagnosis for this admission?: Yes (8) BPH (benign prostatic hyperplasia) Is this a current diagnosis for this admission?: Yes (9) Carotid atherosclerosis Is this a current diagnosis for this admission?: Yes - Additional Information Discharge Diet: Cardiac Discharge Activity: Activity As Tolerated, Balance Activity w/Rest, Slowly Increase Activity Home Medications: Atorvastatin Calcium [Lipitor 20 mg Tablet] 20 mg PO QHS 05/28/17 Donepezil HCl [Aricept] 10 mg PO QHS 05/28/17 Ergocalciferol (Vitamin D2) [Drisdol 50,000 unit (1.25MG) Capsule] 50,000 unit PO WINSTON@1000 05/28/17 Insulin Aspart [Novolog Flexpen] 0 unit SUBCUT .SLD SCALE MDD 15 UNI 05/28/17 Oxybutynin Chloride [Ditropan Xl] 10 mg PO DAILY 05/28/17 Pantoprazole Sodium [Protonix] 40 mg PO DAILY 05/28/17 Sitagliptin Phosphate [Januvia 50 mg Tablet] 50 mg PO DAILY 05/28/17 Tamsulosin HCl [Flomax 0.4 mg Cap.sr] 0.4 mg PO DAILY 05/28/17 Tramadol HCl [Ultram 50 mg Tablet] 50 mg PO Q8HP PRN 05/28/17 Guaifenesin [Mucinex Sr 600 mg Tablet.sa] 600 mg PO Q12 #30 tablet.sa 05/29/17 Insulin Detemir [Levemir Flextouch] 20 unit SQ QHS #0 05/29/17 Levofloxacin [Levaquin 750 mg Tablet] 750 mg PO QPM #7 tablet 05/29/17 Polyethylene Glycol 3350 [Miralax Powder 17 gm/Packet] 17 gm PO DAILY #30 powd.pack 05/29/17 History of Present Illness Patient complains of: Fever History of Present Illness: CANDELARIA LOVING is a 86 year old male, With history of dementia, as well as diabetes hypertension chronic kidney disease stage III BPH brought to the emergency room because of noted chills with associated fever and sweating. Patient apparently does not complain due to underlying dementia. Symptoms were noted by the family. The patient was seen in the emergency room last month and treated for right lower lobe pneumonia with antibiotics. The patient improved according to the family. Patient will have on and off bouts of being quiet and very active and talkative. Patient was brought to her ct tech a few days ago and noted decreased breath sounds on the lower lung field more on the left. That was on routine visit. The day before admission the patient noted to be less responsive than usual. No reported respiratory distress or diarrhea. There is no reported nausea or vomiting as well. Patient was recently started on prostate medication by her by his primary care physician. On the day of admission he was brought to the emergency room because of the noted above symptoms. In the emergency room, chest x-ray revealed recurrent right lower lobe infiltrate with WBC of 26.8 and mildly elevated lactic acid. The patient was then referred for admission. Patient is unreliable and confused. Information unobtainable from the patient at this time. Information provided by the family. Hospital Course Hospital Course: The patient was admitted to telemetry. The patient was gently hydrated with intravenous fluids. Broad-spectrum antibiotic was started to cover for aspiration pneumonia. Speech therapy was consulted and eventually the patient is at low risk for aspiration. Subsequently the patient also was given antipyretics and analgesics. A KUB was obtained showing constipation and patient was started on laxatives. The patient eventually improved after 48 hours of treatment. Patient was able to be weaned off the oxygen. Physical therapy was therefore instituted. In terms of the patient's diabetes he was placed on sliding scale insulin and his blood sugars are in the 200s. On discharge his basal insulin was therefore decreased to half and continued on his sliding scale. In terms of his hypertension he was noted to have normal blood pressure while in the hospital. His antihypertensive was therefore held and discontinued on discharge. The rest of the hospital stay is unremarkable. The patient cultures remain negative. Physical Exam Vital Signs: Temp Pulse Resp BP Pulse Ox 98.0 F 78 18 125/40 L 92 05/29/17 08:20 05/29/17 13:47 05/29/17 08:20 05/29/17 08:20 05/29/17 08:20 Intake & Output 05/28/17 05/29/17 05/30/17 06:59 06:59 06:59 Intake Total 850 2869 Output Total 0 1450 Balance 850 1419 Weight 71.5 kg 73.4 kg General appearance: PRESENT: no acute distress, cooperative, obese Head exam: PRESENT: normocephalic Eye exam: PRESENT: EOMI Mouth exam: PRESENT: moist, neck supple Neck exam: ABSENT: JVD Respiratory exam: PRESENT: rhonchi - few, unlabored. ABSENT: wheezes Cardiovascular exam: PRESENT: irregular rhythm, RRR. ABSENT: gallop GI/Abdominal exam: PRESENT: hypoactive bowel sounds, soft. ABSENT: distended, tenderness Extremities exam: ABSENT: pedal edema Neurological exam: PRESENT: alert, awake Skin exam: PRESENT: dry, warm. ABSENT: cyanosis Results Laboratory Results: 05/29/17 05:08 05/29/17 05:08 05/29/17 05/29/17 05:08 05:08 WBC 12.6 H RBC 3.86 L Hgb 10.7 L Hct 32.7 L MCV 85 MCH 27.8 MCHC 32.8 RDW 14.3 H Plt Count 165 Sodium 141.0 Potassium 4.5 Chloride 106 Carbon Dioxide 25 Anion Gap 10 BUN 27 H Creatinine 1.61 H Est GFR ( Amer) 49 L Est GFR (Non-Af Amer) 41 L Glucose 157 H Calcium 8.3 L Impressions: Chest X-Ray 05/27/17 15:52 IMPRESSION: Persistent versus recurrent right lower lobe pulmonary opacification, consistent with pneumonia. KUB X-Ray 05/28/17 00:00 IMPRESSION: NO RADIOGRAPHIC EVIDENCE FOR ACUTE ABDOMINAL DISEASE. Moderate constipation. Qualifiers PATEINT BEING DISCHARGED WITH ANY OF THE FOLLOWING DIAGNOSIS?: No Plan Discharge Plan: Follow-up with primary care physician in 1 week. Time Spent: Less than 30 Minutes
[2017-05-29] MEDS ORDERED: POLYETHYLENE GLYCOL 3350 POWDER 17 GM/1 PACKET PO ONE (16:30)
[2017-05-29] MEDS ORDERED: LEVOFLOXACIN 750 MG TABLET PO SCH (18:00)
[2017-05-30] MEDS: LANSOPRAZOLE 30 MG TAB.RAP.DR PO SCH (06:04)
[2017-05-30] MEDS: HEPARIN SOD (PORCINE) 5,000 UNIT/ML 1 ML SYRINGE SUBCUT SCH (06:05)
[2017-05-30] MEDS: INSULIN REG, HUMAN 100 UNIT/ML 3 ML VIAL (PYX) SUBCUT PRN (07:50)
[2017-05-30] MEDS: GUAIFENESIN 600 MG TABLET.SA PO SCH (09:42)
[2017-05-30] MEDS: TAMSULOSIN HCL 0.4 MG CAP.SR.24H PO SCH (09:42)
[2017-05-30] MEDS: DONEPEZIL HCL 5 MG TABLET PO SCH (09:42)
[2017-05-30] MEDS ORDERED: POLYETHYLENE GLYCOL 3350 POWDER 17 GM/1 PACKET PO SCH (10:00)
[2017-05-30 10:08] VITALS: BP 109/70
--- NOTE | 2017-05-30 14:21 | PDOC DISCHARGE SUMMARY ---
General - Admit/Disc Date/PCP Admission Date/Primary Care Provider: 05/27/17 18:32 JAMEL BROWN MD Discharge Date: 05/30/17 - Discharge Diagnosis (1) Sepsis Is this a current diagnosis for this admission?: Yes (2) Pneumonia Is this a current diagnosis for this admission?: Yes (3) Alzheimer's dementia Is this a current diagnosis for this admission?: Yes (4) BPH (benign prostatic hyperplasia) Is this a current diagnosis for this admission?: Yes (5) Chronic kidney disease, stage 3 (moderate) Is this a current diagnosis for this admission?: Yes (6) Diabetes mellitus type 2 in obese Is this a current diagnosis for this admission?: Yes (7) Essential hypertension Is this a current diagnosis for this admission?: Yes (8) Hyperlipidemia Is this a current diagnosis for this admission?: Yes - Additional Information Discharge Diet: Cardiac Discharge Activity: Activity As Tolerated, Balance Activity w/Rest, Slowly Increase Activity Home Medications: Atorvastatin Calcium [Lipitor 20 mg Tablet] 20 mg PO QHS 05/28/17 Donepezil HCl [Aricept] 10 mg PO QHS 05/28/17 Ergocalciferol (Vitamin D2) [Drisdol 50,000 unit (1.25MG) Capsule] 50,000 unit PO WINSTON@1000 05/28/17 Insulin Aspart [Novolog Flexpen] 0 unit SUBCUT .SLD SCALE MDD 15 UNI 05/28/17 Oxybutynin Chloride [Ditropan Xl] 10 mg PO DAILY 05/28/17 Pantoprazole Sodium [Protonix] 40 mg PO DAILY 05/28/17 Sitagliptin Phosphate [Januvia 50 mg Tablet] 50 mg PO DAILY 05/28/17 Tamsulosin HCl [Flomax 0.4 mg Cap.sr] 0.4 mg PO DAILY 05/28/17 Tramadol HCl [Ultram 50 mg Tablet] 50 mg PO Q8HP PRN 05/28/17 Guaifenesin [Mucinex Sr 600 mg Tablet.sa] 600 mg PO Q12 #30 tablet.sa 05/29/17 Insulin Detemir [Levemir Flextouch] 20 unit SQ QHS #0 05/29/17 Polyethylene Glycol 3350 [Miralax Powder 17 gm/Packet] 17 gm PO DAILY #30 powd.pack 05/29/17 Levofloxacin [Levaquin 750 mg Tablet] 750 mg PO QPM #7 tablet 05/30/17 History of Present Illness History of Present Illness: CANDELARIA LOVING is a 86 year old male with a history of dementia, diabetes, chronic renal failure who was brought to the emergency room with chills and fever and sweating. The patient was treated last month for right lower lobe pneumonia with antibiotics. The patient according family had been quieter than usual. Patient was found to have lower lung field breath sounds that were decreased. He presents to the emergency room and was found to have a recurrent right lower lobe infiltrate, leukocytosis of 26,000, elevated lactic acid consistent with sepsis. Hospital Course Hospital Course: 86-year-old gentleman who presented with sepsis and right lower lobe pneumonia. The patient was started on Levaquin as well as IV fluids and had improvement in his symptoms. Patient was eventually weaned off of oxygen. The patient had blood cultures that were all negative. The patient from a pulmonary standpoint had improved well enough that he could be discharged home on oral Levaquin. While hospitalized patient did have problems with constipation and was started on laxatives. His blood sugars also have been elevated while here. The patient's other medical problems all were stable during this hospitalization. He will be discharged home and follow-up with his primary care doctor in 1-2 weeks. Physical Exam Vital Signs: Temp Pulse Resp BP Pulse Ox 98.1 F 80 20 109/70 95 05/30/17 10:06 05/30/17 10:06 05/30/17 10:06 05/30/17 10:06 05/30/17 10:06 Intake & Output 05/29/17 05/30/17 05/31/17 06:59 06:59 06:59 Intake Total 2869 1517 Output Total 1450 1100 Balance 1419 417 Weight 73.4 kg 72 kg General appearance: PRESENT: no acute distress Eye exam: PRESENT: conjunctiva pink. ABSENT: scleral icterus Mouth exam: PRESENT: moist, tongue midline Neck exam: ABSENT: JVD Respiratory exam: PRESENT: clear to auscultation ronni. ABSENT: rales, rhonchi, wheezes Cardiovascular exam: PRESENT: RRR. ABSENT: diastolic murmur, rubs, systolic murmur GI/Abdominal exam: PRESENT: normal bowel sounds, soft. ABSENT: distended, guarding, mass, organolmegaly, rebound, tenderness Extremities exam: ABSENT: calf tenderness, clubbing, pedal edema Neurological exam: PRESENT: alert, awake, oriented to person, oriented to place , oriented to time, oriented to situation Psychiatric exam: PRESENT: appropriate affect Skin exam: PRESENT: dry, intact, warm. ABSENT: cyanosis, rash Results Laboratory Results: 05/29/17 05:08 05/29/17 05:08 Impressions: Chest X-Ray 05/27/17 15:52 IMPRESSION: Persistent versus recurrent right lower lobe pulmonary opacification, consistent with pneumonia. KUB X-Ray 05/28/17 00:00 IMPRESSION: NO RADIOGRAPHIC EVIDENCE FOR ACUTE ABDOMINAL DISEASE. Moderate constipation. Qualifiers PATEINT BEING DISCHARGED WITH ANY OF THE FOLLOWING DIAGNOSIS?: No Plan Discharge Plan: Discharged home. Will follow up with primary care doctor in 1-2 weeks Time Spent: Less than 30 Minutes
== END 2017-05-30 11:50 | disposition home health service (06) | DRG 871 ==
LOC: ER 15:21 → UNDOADMIN 18:10 → EH 18:10 → 3W 21:54
PROVIDERS: ADMIT Family Medicine; ATTEND Family Medicine
DX: A41.9 Sepsis, unspecified organism (principal); J18.1 Lobar pneumonia, unspecified organism; E11.22 Type 2 diabetes mellitus with diabetic chronic kidney disease; I12.9 Hypertensive chronic kidney disease with stage 1 through stage 4 chronic kidney disease, or unspecified chronic kidney disease; N18.3 Chronic kidney disease, stage 3 (moderate); E78.5 Hyperlipidemia, unspecified; G30.9 Alzheimer's disease, unspecified; F02.80 Dementia in other diseases classified elsewhere, unspecified severity, without behavioral disturbance, psychotic disturbance, mood disturbance, and anxiety; N40.0 Benign prostatic hyperplasia without lower urinary tract symptoms; I65.29 Occlusion and stenosis of unspecified carotid artery; R53.1 Weakness; Z87.891 Personal history of nicotine dependence
CPT/HCPCS: 36415; 71010; 74000; 80048; 80053; 81001; 82550; 82553; 82803; 82962; 83036; 83605; 84484; 85025; 85027; 85610; 87040; 87086; 93005; 93010; 99291; G8978-GP; G8979-GP; G8996-GN; G8997-GN; G8998-GN; J0692; J1644; J1815; J1956; J3490; J7030

== ENCOUNTER → 2017-06-16 | Outpatient (CLI) | payer MEDICARE, OTHER ==
[2017-06-16 11:15] LABS: HEMATOCRIT 40.9 % (37.9-51.0); HEMOGLOBIN 13.2 g/dL (13.5-17.0); HGB HCT DIFFERENCE -1.3; MEAN CORPUSCULAR HEMOGLOBIN 27.4 pg (27.0-33.4); MEAN CORPUSCULAR HGB CONC 32.3 g/dL (32.0-36.0); MEAN CORPUSCULAR VOLUME 85 fl (80-97); RED BLOOD COUNT 4.82 10^6/uL (4.35-5.55); RED CELL DISTRIBUTION WIDTH 14.2 % (11.5-14.0); WHITE BLOOD COUNT 9.6 10^3/uL (4.0-10.5)
[2017-06-16 11:16] LABS: APPEARANCE,URINE CLEAR; BILIRUBIN,URINE NEGATIVE (NEGATIVE); GLUCOSE, URINE NEGATIVE (NEGATIVE); KETONES,URINE NEGATIVE (NEGATIVE); LEUKOCYTE ESTERASE,URINE NEGATIVE (NEGATIVE); NITRITE,URINE NEGATIVE (NEGATIVE); PROTEIN,URINE NEGATIVE (NEGATIVE); URINE SPECIFIC GRAVITY 1.008; UROBILINOGEN,URINE NEGATIVE mg/dL (<2.0)
[2017-06-16 11:50] LABS: ALANINE AMINOTRANSFERASE 25 U/L (21-72); ALBUMIN 4.4 g/dL (3.5-5.0); ALKALINE PHOSPHATASE 96 U/L (38-126); ANION GAP 15 (5-19); ASPARTATE AMINO TRANSFERASE 19 U/L (17-59); BILIRUBIN,DIRECT 0.3 mg/dL (0.0-0.4); BILIRUBIN,TOTAL 0.4 mg/dL (0.2-1.3); BLOOD UREA NITROGEN 35 mg/dL (7-20); CALCIUM 9.4 mg/dL (8.4-10.2); CARBON DIOXIDE 30 mmol/L (22-30); CHLORIDE 95 mmol/L (98-107); CREATININE RESULT 1.99 mg/dL (0.52-1.25); GLUCOSE 299 mg/dL (75-110); POTASSIUM 4.7 mmol/L (3.6-5.0); SODIUM 140.1 mmol/L (137-145); TOTAL PROTEIN 8.5 g/dL (6.3-8.2)
== END ==
LOC: OD 09:09
PROVIDERS: ATTEND Internal Medicine Nephrology
DX: E11.22 Type 2 diabetes mellitus with diabetic chronic kidney disease (principal); I12.9 Hypertensive chronic kidney disease with stage 1 through stage 4 chronic kidney disease, or unspecified chronic kidney disease; N18.3 Chronic kidney disease, stage 3 (moderate); E87.5 Hyperkalemia
CPT/HCPCS: 36415; 80053; 81001; 85027

== ENCOUNTER → 2017-07-15 | Outpatient (CLI) | payer MEDICARE, OTHER | LOC: OD 08:00 | PROVIDERS: ATTEND Family Medicine Geriatric Medicine | DX: E11.9 Type 2 diabetes mellitus without complications (principal); Z79.899 Other long term (current) drug therapy | CPT/HCPCS: 36415; 83036 ==

== ENCOUNTER → 2017-09-07 | Outpatient (CLI) | payer MEDICARE ==
--- NOTE | 2017-09-07 19:19 | RADIOLOGY REPORT (SQ) ---
EXAM DESCRIPTION: CHEST PA/LAT COMPLETED DATE/TIME: 09/07/2017 6:08 pm REASON FOR STUDY: Chronic obstructive pulmonary disease, unspecified,Acute bronchitis, unspec COMPARISON: 11/30/2016 EXAM PARAMETERS: NUMBER OF VIEWS: two views TECHNIQUE: Digital Frontal and Lateral radiographic views of the chest acquired. RADIATION DOSE: NA LIMITATIONS: none FINDINGS: LUNGS AND PLEURA: No opacities, masses or pneumothorax. No pleural effusion. MEDIASTINUM AND HILAR STRUCTURES: No masses or contour abnormalities. HEART AND VASCULAR STRUCTURES: Heart normal size. No evidence for failure. BONES: No acute findings. HARDWARE: None in the chest. OTHER: No other significant finding. IMPRESSION: NO SIGNIFICANT RADIOGRAPHIC FINDING IN THE CHEST. TECHNICAL DOCUMENTATION: JOB ID: [id number] [employer]- All Rights Reserved
== END ==
LOC: RAD 17:47
PROVIDERS: ATTEND Family Medicine Geriatric Medicine
DX: J44.0 Chronic obstructive pulmonary disease with (acute) lower respiratory infection (principal); J20.9 Acute bronchitis, unspecified
CPT/HCPCS: 71020

== ENCOUNTER → 2017-09-18 | Outpatient (CLI) | payer MEDICARE ==
[2017-09-18 14:24] LABS: HEMATOCRIT 40.4 % (37.9-51.0); HEMOGLOBIN 13.3 g/dL (13.5-17.0); HGB HCT DIFFERENCE -0.5; MEAN CORPUSCULAR HEMOGLOBIN 27.8 pg (27.0-33.4); MEAN CORPUSCULAR VOLUME 84 fl (80-97); RED CELL DISTRIBUTION WIDTH 15.1 % (11.5-14.0); WHITE BLOOD COUNT 11.4 10^3/uL (4.0-10.5)
[2017-09-18 14:27] LABS: APPEARANCE,URINE SLIGHTLY-CLOUDY; BILIRUBIN,URINE NEGATIVE (NEGATIVE); GLUCOSE, URINE NEGATIVE (NEGATIVE); KETONES,URINE NEGATIVE (NEGATIVE); LEUKOCYTE ESTERASE,URINE SMALL (NEGATIVE); NITRITE,URINE NEGATIVE (NEGATIVE); PROTEIN,URINE 30 mg/dL (NEGATIVE); URINE SPECIFIC GRAVITY 1.012; UROBILINOGEN,URINE NEGATIVE mg/dL (<2.0)
[2017-09-18 14:39] LABS: ANION GAP 17 (5-19); BLOOD UREA NITROGEN 28 mg/dL (7-20); CALCIUM 9.4 mg/dL (8.4-10.2); CARBON DIOXIDE 27 mmol/L (22-30); CHLORIDE 101 mmol/L (98-107); CREATININE RESULT 1.67 mg/dL (0.52-1.25); GLUCOSE 182 mg/dL (75-110); POTASSIUM 5.4 mmol/L (3.6-5.0)
== END ==
LOC: OD 12:33
PROVIDERS: ATTEND Internal Medicine Nephrology
DX: I12.9 Hypertensive chronic kidney disease with stage 1 through stage 4 chronic kidney disease, or unspecified chronic kidney disease (principal); N18.3 Chronic kidney disease, stage 3 (moderate); R80.9 Proteinuria, unspecified; E11.9 Type 2 diabetes mellitus without complications
CPT/HCPCS: 36415; 80048; 81001; 85027

== ENCOUNTER 2017-10-24 13:14 | Emergency (ER) | payer MEDICARE, OTHER ==
--- NOTE | 2017-10-24 13:49 | ER Document Report ---
ED General - General Chief Complaint: Fall Stated Complaint: FALL/RIGHT ARM PAIN Time Seen by Provider: 10/24/17 13:37 Mode of Arrival: Medic Information source: Patient Notes: This is an 87-year-old man that presents to the emergency room with a right upper extremity injury after falling at home. Patient does live with his son. Patient was walking around a table lost his balance and fell. Presents with a laceration to the right upper extremity. Patient's blood pressure was noted to be low. This was rechecked in his right arm and his blood pressure is actually hypertensive. The patient does have a history of vascular issues and states that normally, "they cannot get a blood pressure from my left arm). 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 TRAVEL OUTSIDE OF THE [place] IN LAST 30 DAYS: No - HPI Onset: Just prior to arrival Onset/Duration: Sudden Quality of pain: No pain Severity: None Pain Level: Denies Associated symptoms: denies: Chest pain, Fever, Sinus pain/drainage Exacerbated by: Denies Relieved by: Denies Similar symptoms previously: No Recently seen / treated by doctor: No - Related Data Allergies/Adverse Reactions: No Known Allergies Allergy (Verified 10/24/17 13:21) Past Medical History - General Information source: Patient - Social History Smoking Status: Former Smoker Cigarette use (# per day): No Chew tobacco use (# tins/day): No Frequency of alcohol use: None Drug Abuse: None Lives with: Family Family History: None Patient has suicidal ideation: No Patient has homicidal ideation: No - Past Medical History Cardiac Medical History: Reports: Hx Hypercholesterolemia, Hx Hypertension - medicated Denies: Hx Heart Attack Pulmonary Medical History: Denies: Hx Asthma Neurological Medical History: Denies: Hx Cerebrovascular Accident, Hx Seizures Endocrine Medical History: Reports: Hx Diabetes Mellitus Type 2 Renal/ Medical History: Reports: Hx Renal Insufficiency - Not being dialyzed. Denies: Hx Hemodialysis, Hx Peritoneal Dialysis GI Medical History: Denies: Hx Hepatitis, Hx Hiatal Hernia, Hx Ulcer Skin Medical History: Denies Hx Cellulitis Psychiatric Medical History: Reports: Hx Dementia Denies: Hx Depression Infectious Medical History: Denies: Hx Hepatitis Past Surgical History: Reports: Hx Carotid Endarterectomy, Other - Cataract surgery. Denies: Hx Open Heart Surgery, Hx Pacemaker - Immunizations Hx Diphtheria, Pertussis, Tetanus Vaccination: Yes Review of Systems - Review of Systems Constitutional: No symptoms reported EENT: No symptoms reported Cardiovascular: No symptoms reported Respiratory: No symptoms reported Gastrointestinal: No symptoms reported Genitourinary: No symptoms reported Male Genitourinary: No symptoms reported Musculoskeletal: See HPI Skin: See HPI Hematologic/Lymphatic: No symptoms reported Neurological/Psychological: No symptoms reported Physical Exam - Vital signs Vitals: Temp Pulse Resp BP Pulse Ox 97.7 F 102 H 14 82/62 L 96 10/24/17 13:22 10/24/17 13:22 10/24/17 13:22 10/24/17 13:22 10/24/17 13:22 Notes: Physical exam: GENERAL: Alert 87-year-old man, no acute distress. HEAD: Atraumatic, normocephalic. EYES: Pupils equal round and reactive to light, extraocular movements intact, sclera anicteric, conjunctiva are normal. ENT: TMs normal, nares patent, oropharynx clear without exudates. Moist mucous membranes. NECK: Normal range of motion, supple without obvious mass or JVD. LUNGS: Breath sounds clear to auscultation bilaterally and equal. No wheezes rales or rhonchi. HEART: Regular rate and rhythm without murmurs, rubs or gallops. ABDOMEN: Soft, normoactive bowel sounds. No tenderness to palpation. No guarding, no rebound. No masses appreciated. EXTREMITIES: Patient does have a 4 x 5 skin tear to the upper proximal forearm medially. The tear does not appear amenable to sutures. No pain over the bone. He does have a chronic rash to the right antecubital and takes a cream medicine from his doctor (Dr. Garcia). NEUROLOGICAL: Cranial nerves II through XII grossly intact. Normal speech, moving all extremities. PSYCH: Normal mood, normal affect. SKIN: Skin care as above Course - Vital Signs Vital signs: Temp Pulse Resp BP Pulse Ox 97.3 F 102 H 18 141/58 H 96 10/24/17 14:57 10/24/17 13:22 10/24/17 14:32 10/24/17 14:38 10/24/17 14:32 Discharge - Discharge Clinical Impression: Skin tear right forearm, Status post fall Condition: Stable Disposition: HOME, SELF-CARE Additional Instructions: Thank you for choosing [facility] for your care. The examination and treatment you have received in the Emergency Department today has been rendered on an emergency basis only and is not intended to be a substitute for complete medical care. You should contact your follow-up physician as it is important that he or she examine you for any new or remaining problems. If given a copy of any lab tests or radiology reports, please bring them with you when you see your physician. If your problem worsens or new symptoms appear and you are unable to arrange prompt follow-up care, return to the Emergency Department. Specific signs to look out for: Redness, discharge from the wound, increased pain, fever (temperature greater than 100.5), or any concerns that you are getting infection. Any other instructions: Follow-up with your primary care doctor. Keep the wound cleaned, dressed daily.
[2017-10-24 14:40] VITALS: BP 141/58
== END 2017-10-24 14:59 | disposition home or self-care (01) ==
LOC: ER 13:14
DX: S51.811A Laceration without foreign body of right forearm, initial encounter (principal); W19.XXXA Unspecified fall, initial encounter; Y92.009 Unspecified place in unspecified non-institutional (private) residence as the place of occurrence of the external cause; I82.B19 Acute embolism and thrombosis of unspecified subclavian vein; R21 Rash and other nonspecific skin eruption; E11.9 Type 2 diabetes mellitus without complications; I10 Essential (primary) hypertension; Z87.891 Personal history of nicotine dependence; Z79.899 Other long term (current) drug therapy
CPT/HCPCS: 99283

== ENCOUNTER → 2018-01-15 | Outpatient (CLI) | payer MEDICARE, OTHER ==
[2018-01-15 12:13] LABS: ALANINE AMINOTRANSFERASE 30 U/L (21-72); ANION GAP 16 (5-19); ASPARTATE AMINO TRANSFERASE 27 U/L (17-59); BLOOD UREA NITROGEN 26 mg/dL (7-20); CALCIUM 10.4 mg/dL (8.4-10.2); CARBON DIOXIDE 28 mmol/L (22-30); CHLORIDE 104 mmol/L (98-107); CHOLESTEROL 194.39 mg/dL (0-200); GLUCOSE 127 mg/dL (75-110); POTASSIUM 5.6 mmol/L (3.6-5.0); SODIUM 147.5 mmol/L (137-145); TRIGLYCERIDES 175 mg/dL (<150)
[2018-01-15 12:14] LABS: ANION GAP 15 (5-19); BLOOD UREA NITROGEN 26 mg/dL (7-20); CALCIUM 10.3 mg/dL (8.4-10.2); CARBON DIOXIDE 28 mmol/L (22-30); CHLORIDE 105 mmol/L (98-107); GLUCOSE 127 mg/dL (75-110); POTASSIUM 5.5 mmol/L (3.6-5.0); SODIUM 147.5 mmol/L (137-145)
[2018-01-15 12:24] LABS: DIRECT LDL 116 mg/dL (<100)
== END ==
LOC: OD 10:58
PROVIDERS: ATTEND Internal Medicine Nephrology
DX: E11.22 Type 2 diabetes mellitus with diabetic chronic kidney disease (principal); I12.9 Hypertensive chronic kidney disease with stage 1 through stage 4 chronic kidney disease, or unspecified chronic kidney disease; N18.3 Chronic kidney disease, stage 3 (moderate); E78.5 Hyperlipidemia, unspecified; R25.2 Cramp and spasm; R80.9 Proteinuria, unspecified; E87.5 Hyperkalemia
CPT/HCPCS: 36415; 80048; 80061; 83735; 84450; 84460

== ENCOUNTER → 2018-01-17 | Outpatient (CLI) | payer MEDICARE, OTHER ==
[2018-01-17 14:53] LABS: ANION GAP 16 (5-19); BLOOD UREA NITROGEN 29 mg/dL (7-20); CALCIUM 9.8 mg/dL (8.4-10.2); CARBON DIOXIDE 30 mmol/L (22-30); CHLORIDE 100 mmol/L (98-107); GLUCOSE 274 mg/dL (75-110); POTASSIUM 5.6 mmol/L (3.6-5.0); SODIUM 145.8 mmol/L (137-145)
== END ==
LOC: OD 13:14
PROVIDERS: ATTEND Internal Medicine Nephrology
DX: E87.5 Hyperkalemia (principal); E11.22 Type 2 diabetes mellitus with diabetic chronic kidney disease; I12.9 Hypertensive chronic kidney disease with stage 1 through stage 4 chronic kidney disease, or unspecified chronic kidney disease; N18.3 Chronic kidney disease, stage 3 (moderate); R80.9 Proteinuria, unspecified
CPT/HCPCS: 36415; 80048; 83735; 84132

== ENCOUNTER → 2018-10-06 | Outpatient (CLI) | payer MEDICARE, OTHER ==
[2018-10-06 10:17] LABS: ALANINE AMINOTRANSFERASE 17 U/L (21-72); ANION GAP 14 (5-19); BLOOD UREA NITROGEN 26 mg/dL (7-20); CALCIUM 9.6 mg/dL (8.4-10.2); CARBON DIOXIDE 32 mmol/L (22-30); CHLORIDE 98 mmol/L (98-107); CHOLESTEROL 205.49 mg/dL (0-200); GLUCOSE 176 mg/dL (75-110); POTASSIUM 5.5 mmol/L (3.6-5.0); SODIUM 143.6 mmol/L (137-145); TRIGLYCERIDES 244 mg/dL (<150)
[2018-10-06 10:27] LABS: DIRECT LDL 125 mg/dL (<100)
[2018-10-06 10:34] LABS: VLDL CHOLESTEROL 48.8 mg/dL (10-31)
== END ==
LOC: OD 08:57
PROVIDERS: ATTEND Family Medicine Geriatric Medicine
DX: E11.22 Type 2 diabetes mellitus with diabetic chronic kidney disease (principal); N18.3 Chronic kidney disease, stage 3 (moderate); E78.5 Hyperlipidemia, unspecified; E83.52 Hypercalcemia; Z79.899 Other long term (current) drug therapy
CPT/HCPCS: 36415; 80048; 80061; 82306; 83036; 83970; 84460

== ENCOUNTER → 2018-12-29 | Outpatient (CLI) | payer MEDICARE, OTHER ==
[2018-12-29 11:23] LABS: ANION GAP 15 (5-19); BLOOD UREA NITROGEN 34 mg/dL (7-20); CALCIUM 9.9 mg/dL (8.4-10.2); CARBON DIOXIDE 30 mmol/L (22-30); CHLORIDE 97 mmol/L (98-107); GLUCOSE 175 mg/dL (75-110); POTASSIUM 5.1 mmol/L (3.6-5.0); SODIUM 142.1 mmol/L (137-145)
== END ==
LOC: OD 09:37
PROVIDERS: ATTEND Internal Medicine
DX: E03.9 Hypothyroidism, unspecified (principal); E11.8 Type 2 diabetes mellitus with unspecified complications; D64.9 Anemia, unspecified; N19 Unspecified kidney failure
CPT/HCPCS: 36415; 80048; 83036; 84443

== ENCOUNTER → 2019-01-26 | Outpatient (CLI) | payer MEDICARE, OTHER ==
[2019-01-26 09:26] LABS: ANION GAP 13 (5-19); BLOOD UREA NITROGEN 24 mg/dL (7-20); CALCIUM 9.3 mg/dL (8.4-10.2); CARBON DIOXIDE 32 mmol/L (22-30); CHLORIDE 100 mmol/L (98-107); GLUCOSE 205 mg/dL (75-110)
== END ==
LOC: OD 08:11
PROVIDERS: ATTEND Internal Medicine
DX: N19 Unspecified kidney failure (principal)
CPT/HCPCS: 36415; 80048

== ENCOUNTER → 2019-02-25 | Outpatient (CLI) | payer MEDICARE, OTHER ==
--- NOTE | 2019-02-25 17:05 | RADIOLOGY REPORT (SQ) ---
EXAM DESCRIPTION: CHEST PA/LATERAL COMPLETED DATE/TIME: 02/25/2019 4:48 pm REASON FOR STUDY: ACUTE BRONCHITIS, UNSPECIFIED COMPARISON: 09/07/2017. EXAM PARAMETERS: NUMBER OF VIEWS: two views TECHNIQUE: Digital Frontal and Lateral radiographic views of the chest acquired. RADIATION DOSE: NA LIMITATIONS: none FINDINGS: LUNGS AND PLEURA: Low lung volumes with linear densities in the right lung base. Left óscar g relatively clear. No large pleural effusion. No pneumothorax. MEDIASTINUM AND HILAR STRUCTURES: No masses or contour abnormalities. HEART AND VASCULAR STRUCTURES: Heart normal size. No evidence for failure. BONES: No acute findings. HARDWARE: None in the chest. OTHER: No other significant finding. IMPRESSION: LOW LUNG VOLUMES. LINEAR DENSITIES IN THE RIGHT LUNG BASE MAY BE DUE TO PLATELIKE ATELE CTASIS VERSUS DEVELOPING INFILTRATE. TECHNICAL DOCUMENTATION: JOB ID: [id number] [employer]- All Rights Reserved Reading location - IP/workstation name: [email or web address]
== END ==
LOC: OD 16:07
PROVIDERS: ATTEND Internal Medicine
DX: J20.9 Acute bronchitis, unspecified (principal)
CPT/HCPCS: 71046